=== PATIENT | male | born 1950 | race Caucasian/White ===

== ENCOUNTER → 2016-10-26 | Outpatient (CLI) | payer MEDICARE, OTHER ==
[2016-10-26 11:33] LABS: Urine RBC None Seen /hpf (0 - 3)
[2016-10-26 12:18] LABS: Basophils # (auto) 0.1 uL; Basophils % (auto) 1.1 % (0.0-2.0); Eosinophils # (auto) 0.4 uL; Eosinophils % (auto) 3.4 % (0.0-7.0); Hematocrit 40.7 % (41.0-53.0); Hemoglobin 13.6 g/dL (13.5-17.5); Lymphocytes # (auto) 3.1 uL; Lymphocytes % (auto) 26.7 % (10.0-50.0); Mean Corpuscular Hemoglobin 28.6 pg (28.0-32.0); Mean Corpuscular Hgb Conc. 33.5 g/dL (32.0-36.0); Mean Corpuscular Volume 85.3 fL (80.0-100.0); Mean Platelet Volume 7.2 fL (6.9-10.8); Monocytes # (auto) 0.8 uL; Monocytes % (auto) 6.8 % (0.0-12.0); Neutrophils # (auto) 7.3 uL; Nucleated Red Blood Cells % 0.1 %; Platelet Count (auto) 351 10^3/uL (140-450); Red Cell Distribution Width 12.7 % (11.8-14.3); White Blood Cell 11.7 10^3/uL (4.4-10.8)
[2016-10-26 12:20] LABS: Albumin 3.6 g/dL (3.4-5.0); BUN/Creatinine Ratio 24.4; Bilirubin, Total 0.5 mg/dL (0.2-1.0); Potassium 3.6 mmol/L (3.5-5.1); Total Protein 8.5 g/dL (6.4-8.2); Uric Acid 7.4 mg/dL (3.5-7.2)
[2016-10-26 13:06] LABS: Urine Bilirubin Negative (Negative); Urine Blood Negative /uL (Negative); Urine Color Yellow (Yellow); Urine Glucose Normal (Normal); Urine Ketone Negative (Negative); Urine Nitrite Negative (Negative); Urine Urobilinogen Normal (Negative); Urine pH 6.5 (5.0-8.0)
== END | disposition home or self-care (01) ==
LOC: LAB 11:27
PROVIDERS: ATTEND Family Medicine
DX: E78.5 Hyperlipidemia, unspecified (principal); I10 Essential (primary) hypertension; M10.9 Gout, unspecified; R97.20 Elevated prostate specific antigen [PSA]
CPT/HCPCS: 36415; 80053; 80061; 81001; 84153; 84550; 85025

== ENCOUNTER 2016-12-07 08:35 | Emergency (ER) | payer MEDICARE, OTHER ==
[~2016-12-07] VITALS: Ht 170.2 cm; Wt 93.0 kg
[2016-12-07 08:47] VITALS: BP 172/91
== END 2016-12-07 09:27 | disposition home or self-care (01) ==
LOC: ER 08:35
DX: G89.29 Other chronic pain (principal); M25.511 Pain in right shoulder; M19.90 Unspecified osteoarthritis, unspecified site

== ENCOUNTER → 2017-03-09 | Outpatient (CLI) | payer MEDICARE, OTHER | END | disposition home or self-care (01) | LOC: LAB 10:00 | PROVIDERS: ATTEND Family Medicine | DX: M85.0 Fibrous dysplasia (monostotic) (principal) ==

== ENCOUNTER 2017-04-09 08:20 | Emergency (ER) | payer MEDICARE, OTHER ==
[~2017-04-09] VITALS: Ht 167.6 cm; Wt 93.4 kg
[2017-04-09 11:35] VITALS: BP 152/72
== END 2017-04-09 12:05 | disposition home or self-care (01) ==
LOC: ER 08:20
DX: T78.40XA Allergy, unspecified, initial encounter (principal); Z91.040 Latex allergy status; X58.XXXA Exposure to other specified factors, initial encounter

== ENCOUNTER 2017-11-08 16:30 | Inpatient (IN) | payer MEDICARE, OTHER ==
[~2017-11-08] VITALS: Ht 170.2 cm; Wt 79.4 kg
[~2017-11-08 16:30] MED LIST: ASPI-231 PO; HYDR25TA4 PO; LISI-646 PO; SIMV-13 PO
[2017-11-08 17:43] LABS: Basophils # (auto) 0 uL; Basophils % (auto) 0.3 % (0.0-2.0); Eosinophils # (auto) 0 uL; Eosinophils % (auto) 1.1 % (0.0-7.0); Hematocrit 24.5 % (41.0-53.0); Hemoglobin 8.5 g/dL (13.5-17.5); Lymphocytes # (auto) 0.9 uL; Lymphocytes % (auto) 28.6 % (10.0-50.0); Mean Corpuscular Hemoglobin 30.6 pg (28.0-32.0); Mean Corpuscular Hgb Conc. 34.6 g/dL (32.0-36.0); Mean Corpuscular Volume 88.4 fL (80.0-100.0); Monocytes # (auto) 0.2 uL; Monocytes % (auto) 4.8 % (0.0-12.0); Neutrophils # (auto) 2.1 uL; Neutrophils % (auto) 65.2 % (37.0-80.0); Nucleated Red Blood Cells % 0.3 %; Platelet Count (auto) 228 10^3/uL (140-450); Red Blood Cells 2.77 10^6/uL (4.5-5.90); Red Cell Distribution Width 17.8 % (11.8-14.3); White Blood Cell 3.2 10^3/uL (4.4-10.8)
[2017-11-08 17:59] LABS: Alanine Aminotransferase 16 U/L (16-61); Albumin 2.7 g/dL (3.4-5.0); Anion Gap 11 (5-15); Aspartate Aminotransferase 7 U/L (15-37); BUN/Creatinine Ratio 13.2; Blood Urea Nitrogen 16 mg/dL (7-18); Calcium 7.6 mg/dL (8.5-10.1); Carbon Dioxide 23 mmol/L (21-32); Chloride 103 mmol/L (98-107); GFR African American 76 mL/min; GFR Non-African American 63 mL/min; Glucose 127 mg/dL (74-106); Sodium 137 mmol/L (136-145)
[2017-11-08 18:04] LABS: Alkaline Phosphatase 109 U/L (45-117); Total Protein 6.6 g/dL (6.4-8.2)
[2017-11-08 18:19] LABS: Potassium 2.9 mmol/L (3.5-5.1)
[2017-11-08] MEDS ORDERED: SODIUM CHLORIDE 0.9% 1,000 ML IVB ONE (18:20)
[2017-11-08] MEDS ORDERED: PROMETHAZINE HCL 25 MG/ML 1ML IV PRN ×2 (18:30→21:00)
[2017-11-08 19:03] LABS: Magnesium 1.7 mg/dL (1.6-2.6)
[2017-11-08 19:11] LABS: INR 1.08 (0.9-1.15); Partial Thromboplastin Time 25.6 sec (23.78-33.04); Prothrombin Time 11.5 sec (9.27-12.13)
[2017-11-08] MEDS ORDERED: MEPERIDINE HCL (25 MG/ML) 1ML VIAL IV ONE (19:15)
[2017-11-08] MEDS ORDERED: ONDANSETRON HCL 4 MG/2 ML VIAL IV ONE (20:45)
[2017-11-08] MEDS: POTASSIUM CHL 20MEQ/100ML 100 ML IV SCH (20:56)
[2017-11-08] MEDS ORDERED: NITROGLYCERIN 0.4 MG SL TAB SL PRN (21:00)
[2017-11-08] MEDS ORDERED: ACETAMINOPHEN 325 MG TAB PO PRN (21:00)
[2017-11-08] MEDS ORDERED: TEMAZEPAM 15 MG CAP PO PRN (21:00)
[2017-11-08] MEDS ORDERED: MORPHINE SULFATE 4 MG/ML SYR/VIAL IV PRN (21:00)
[2017-11-08] MEDS ORDERED: HYDROcodone-ACET 5/325MG TAB PO PRN (21:00)
[2017-11-08] MEDS ORDERED: PANTOPRAZOLE 40 MG/10 ML VIAL IV ONE (21:00)
[2017-11-08] MEDS ORDERED: ONDANSETRON HCL 4 MG/2 ML VIAL IV PRN (21:00)
[2017-11-08] MEDS: SODIUM CHLORIDE 0.9% 1,000 ML IV SCH ×2 (22:52→23:57)
[2017-11-08] MEDS: ATORVASTATIN 20 MG TAB PO SCH (22:52)
[2017-11-09] MEDS: POTASSIUM CHL 20MEQ/100ML 100 ML IV SCH (01:11)
[2017-11-09 04:57] LABS: Platelet Count (auto) 167 10^3/uL (140-450); Red Cell Distribution Width 17.8 % (11.8-14.3); White Blood Cell 3.2 10^3/uL (4.4-10.8)
[2017-11-09 05:00] LABS: Hematocrit 19.4 % (41.0-53.0); Mean Corpuscular Hemoglobin 31.2 pg (28.0-32.0); Mean Corpuscular Hgb Conc. 35.5 g/dL (32.0-36.0); Mean Corpuscular Volume 87.9 fL (80.0-100.0)
[2017-11-09 05:19] LABS: Calcium 7.2 mg/dL (8.5-10.1)
[2017-11-09 05:22] LABS: Albumin 2.1 g/dL (3.4-5.0); BUN/Creatinine Ratio 13.3
[2017-11-09 05:25] LABS: Bilirubin, Total 0.8 mg/dL (0.2-1.0); Total Protein 5.1 g/dL (6.4-8.2)
[2017-11-09 05:31] LABS: Potassium 2.9 mmol/L (3.5-5.1)
[2017-11-09 05:32] LABS: Hemoglobin 6.9 g/dL (13.5-17.5)
[2017-11-09 05:33] LABS: Band Neutrophils % (manual) 0; Basophils % (manual) 0 (0.0-2.0); Blast Cells 0; Metamyelocytes % 0; Myelocytes % 0; Promyelocytes % 0; Reactive Lymphocytes 0
[2017-11-09 06:01] LABS: Eosinophils % (manual) 4 (0-7); Lymphocytes % (manual) 58 (10.0-50.0); Monocytes % (manual) 7 (0-12)
[2017-11-09] MEDS: metroNIDAZOLE 500MG/100ML 100 ML IV SCH ×3 (06:19→22:26)
[2017-11-09] MEDS: cefTRIAXone 1GM/10ml IVPUSH 10 ML IV SCH (09:25)
[2017-11-09] MEDS: PANTOPRAZOLE 40 MG/10 ML VIAL IV SCH (09:25)
[2017-11-09] MEDS: LISINOPRIL 20 MG TAB PO SCH (09:25)
[2017-11-09] MEDS: HCTZ 25 MG TAB PO SCH (09:25)
[2017-11-09] MEDS: ENOXAPARIN SOD 40 MG/0.4 ML SYRINGE SC SCH (09:26)
[2017-11-09 10:15] VITALS: BP 136/54
[2017-11-09 10:30] VITALS: BP 123/51
[2017-11-09 12:17] VITALS: BP 106/55
[2017-11-09] MEDS ORDERED: POTASSIUM CHL 20 Meq TABLET PO ONE (13:45)
[2017-11-09 13:52] LABS: Hematocrit 23.4 % (41.0-53.0); Hemoglobin 8.1 g/dL (13.5-17.5)
[2017-11-09 17:00] VITALS: BP 136/58
[2017-11-09 17:42] VITALS: BP 136/58
[2017-11-09] MEDS: SODIUM CHLORIDE 0.9% 1,000 ML IV SCH (20:32)
[2017-11-09 22:00] VITALS: BP 102/38
[2017-11-09] MEDS: ATORVASTATIN 20 MG TAB PO SCH (22:26)
[2017-11-10 05:00] VITALS: BP 112/45
[2017-11-10] MEDS: metroNIDAZOLE 500MG/100ML 100 ML IV SCH ×3 (06:24→22:41)
[2017-11-10 06:49] LABS: Hematocrit 24.1 % (41.0-53.0); Hemoglobin 8.5 g/dL (13.5-17.5); Mean Corpuscular Hemoglobin 31.2 pg (28.0-32.0); Mean Corpuscular Hgb Conc. 35.1 g/dL (32.0-36.0); Mean Corpuscular Volume 89.1 fL (80.0-100.0); Platelet Count (auto) 162 10^3/uL (140-450); Red Blood Cells 2.71 10^6/uL (4.5-5.90); Red Cell Distribution Width 17.9 % (11.8-14.3)
[2017-11-10 07:03] LABS: Blast Cells 0; Myelocytes % 0; Reactive Lymphocytes 0
[2017-11-10 07:07] LABS: Calcium 7.5 mg/dL (8.5-10.1)
[2017-11-10 07:10] LABS: Albumin 2.1 g/dL (3.4-5.0); BUN/Creatinine Ratio 9.9
[2017-11-10 07:16] LABS: Bilirubin, Total 0.6 mg/dL (0.2-1.0); Total Protein 5.1 g/dL (6.4-8.2)
[2017-11-10 07:31] LABS: Potassium 2.9 mmol/L (3.5-5.1)
[2017-11-10 08:00] VITALS: BP 123/50
[2017-11-10] MEDS ORDERED: POTASSIUM CHL 20 Meq TABLET PO ONE (08:00)
[2017-11-10 08:01] LABS: Band Neutrophils % (manual) 3; Basophils % (manual) 1 (0.0-2.0); Eosinophils % (manual) 12 (0-7); Lymphocytes % (manual) 38 (10.0-50.0); Metamyelocytes % 3; Monocytes % (manual) 9 (0-12); Promyelocytes % 1
[2017-11-10] MEDS: cefTRIAXone 1GM/10ml IVPUSH 10 ML IV SCH (09:14)
[2017-11-10] MEDS: PANTOPRAZOLE 40 MG/10 ML VIAL IV SCH (09:14)
[2017-11-10] MEDS: SODIUM CHLORIDE 0.9% 1,000 ML IV SCH ×2 (09:14→20:04)
[2017-11-10] MEDS: HCTZ 25 MG TAB PO SCH (09:15)
[2017-11-10] MEDS: ENOXAPARIN SOD 40 MG/0.4 ML SYRINGE SC SCH (09:16)
[2017-11-10] MEDS: LISINOPRIL 20 MG TAB PO SCH (09:16)
[2017-11-10 09:27] VITALS: BP 123/50
[2017-11-10] MEDS ORDERED: LOPERAMIDE HCL 2 MG CAP PO ONE (11:15)
[2017-11-10 12:41] VITALS: BP 112/50
[2017-11-10] MEDS ORDERED: EPOETIN ALFA 10,000 UNIT/1 ML VIAL SC ONE (15:00)
[2017-11-10 15:08] LABS: Folate (Folic Acid) 12.97 ng/mL (5.38-24)
[2017-11-10 17:05] VITALS: BP 136/61
[2017-11-10] MEDS: Pro-Stat SF 30ml Vanilla PO SCH (18:55)
[2017-11-10] MEDS: ENSURE CLEAR Apple 8oz Carton PO SCH (18:55)
[2017-11-10 20:00] VITALS: BP 122/84
[2017-11-10] MEDS: ATORVASTATIN 20 MG TAB PO SCH (22:41)
[2017-11-11 05:08] VITALS: BP 121/60
[2017-11-11] MEDS: metroNIDAZOLE 500MG/100ML 100 ML IV SCH ×3 (05:42→21:25)
[2017-11-11 05:51] LABS: Mean Corpuscular Hemoglobin 31.7 pg (28.0-32.0)
[2017-11-11 05:54] LABS: Hematocrit 23.4 % (41.0-53.0); Hemoglobin 8.3 g/dL (13.5-17.5); Mean Corpuscular Hgb Conc. 35.5 g/dL (32.0-36.0); Mean Corpuscular Volume 89.1 fL (80.0-100.0); Platelet Count (auto) 172 10^3/uL (140-450); Red Blood Cells 2.63 10^6/uL (4.5-5.90); Red Cell Distribution Width 18.9 % (11.8-14.3); White Blood Cell 5.3 10^3/uL (4.4-10.8)
[2017-11-11 06:00] LABS: Basophils % (manual) 0 (0.0-2.0); Blast Cells 0; Metamyelocytes % 0; Promyelocytes % 0; Reactive Lymphocytes 0
[2017-11-11 06:04] LABS: Albumin 2.2 g/dL (3.4-5.0); BUN/Creatinine Ratio 7.1; Calcium 7.3 mg/dL (8.5-10.1)
[2017-11-11 06:07] LABS: Bilirubin, Total 0.4 mg/dL (0.2-1.0)
[2017-11-11 06:18] LABS: Potassium 2.7 mmol/L (3.5-5.1)
[2017-11-11 06:58] LABS: Band Neutrophils % (manual) 0; Eosinophils % (manual) 3 (0-7); Lymphocytes % (manual) 51 (10.0-50.0); Monocytes % (manual) 8 (0-12); Myelocytes % 5
[2017-11-11] MEDS ORDERED: POTASSIUM CHL 20 Meq TABLET PO ONE (07:15)
[2017-11-11] MEDS: Pro-Stat SF 30ml Vanilla PO SCH ×2 (08:00→18:00)
[2017-11-11] MEDS: cefTRIAXone 1GM/10ml IVPUSH 10 ML IV SCH (09:14)
[2017-11-11] MEDS: PANTOPRAZOLE 40 MG/10 ML VIAL IV SCH (09:14)
[2017-11-11] MEDS: ENSURE CLEAR Apple 8oz Carton PO SCH ×3 (09:15→18:14)
[2017-11-11] MEDS: SODIUM CHLORIDE 0.9% 1,000 ML IV SCH ×2 (09:15→21:20)
[2017-11-11] MEDS: ENOXAPARIN SOD 40 MG/0.4 ML SYRINGE SC SCH (09:16)
[2017-11-11] MEDS: HCTZ 25 MG TAB PO SCH (10:00)
[2017-11-11] MEDS ORDERED: FILGRASTIM(TBO) 480 MCG/0.8 ML SYRG SC SCH (10:00)
[2017-11-11] MEDS: LISINOPRIL 20 MG TAB PO SCH (10:19)
[2017-11-11 10:39] VITALS: BP 140/67
[2017-11-11 13:00] VITALS: BP 146/58
[2017-11-11] MEDS: LOPERAMIDE HCL 2 MG CAP PO PRN (14:52)
[2017-11-11 16:57] VITALS: BP 131/56
[2017-11-11 20:00] VITALS: BP 122/65
[2017-11-11] MEDS: ATORVASTATIN 20 MG TAB PO SCH (21:24)
[2017-11-11] MEDS: POTASSIUM EFFERVESENT TAB 25 MEQ PO SCH (21:25)
[2017-11-11 22:02] VITALS: BP 122/65
[2017-11-12 05:09] VITALS: BP 113/52
[2017-11-12] MEDS: metroNIDAZOLE 500MG/100ML 100 ML IV SCH ×3 (05:30→21:06)
[2017-11-12] MEDS: LOPERAMIDE HCL 2 MG CAP PO PRN (05:46)
[2017-11-12 06:18] LABS: Basophils # (auto) 0.1 uL; Basophils % (auto) 0.2 % (0.0-2.0); Eosinophils # (auto) 0.7 uL; Lymphocytes # (auto) 2.8 uL; Neutrophils # (auto) 21.9 uL
[2017-11-12 06:23] LABS: Eosinophils % (auto) 2.4 % (0.0-7.0); Hematocrit 24.8 % (41.0-53.0); Hemoglobin 8.3 g/dL (13.5-17.5); Mean Corpuscular Hemoglobin 30.6 pg (28.0-32.0); Mean Corpuscular Hgb Conc. 33.4 g/dL (32.0-36.0); Mean Corpuscular Volume 91.7 fL (80.0-100.0); Monocytes # (auto) 2.8 uL; Monocytes % (auto) 9.8 % (0.0-12.0); Neutrophils % (auto) 77.6 % (37.0-80.0); Nucleated Red Blood Cells % 0.3 %; Platelet Count (auto) 188 10^3/uL (140-450); Red Blood Cells 2.71 10^6/uL (4.5-5.90); White Blood Cell 28.3 10^3/uL (4.4-10.8)
[2017-11-12 06:35] LABS: BUN/Creatinine Ratio 4.6; Potassium 3.3 mmol/L (3.5-5.1); Red Cell Distribution Width 20.3 % (11.8-14.3)
[2017-11-12 06:36] LABS: Albumin 2.1 g/dL (3.4-5.0); Calcium 7.3 mg/dL (8.5-10.1)
[2017-11-12 06:38] LABS: Bilirubin, Total 0.6 mg/dL (0.2-1.0); Total Protein 4.9 g/dL (6.4-8.2)
[2017-11-12] MEDS: SODIUM CHLORIDE 0.9% 1,000 ML IV SCH ×2 (07:02→18:29)
[2017-11-12] MEDS: Pro-Stat SF 30ml Vanilla PO SCH ×2 (08:00→18:00)
[2017-11-12] MEDS: ENSURE CLEAR Apple 8oz Carton PO SCH ×2 (08:45→12:26)
[2017-11-12 09:00] VITALS: BP 130/77
[2017-11-12] MEDS: cefTRIAXone 1GM/10ml IVPUSH 10 ML IV SCH (09:13)
[2017-11-12] MEDS: PANTOPRAZOLE 40 MG/10 ML VIAL IV SCH (09:13)
[2017-11-12] MEDS: HCTZ 25 MG TAB PO SCH (09:14)
[2017-11-12] MEDS: POTASSIUM EFFERVESENT TAB 25 MEQ PO SCH (09:14)
[2017-11-12] MEDS: LISINOPRIL 20 MG TAB PO SCH (09:14)
[2017-11-12] MEDS: ENOXAPARIN SOD 40 MG/0.4 ML SYRINGE SC SCH (09:15)
[2017-11-12] MEDS ORDERED: LOPERAMIDE HCL 2 MG CAP PO SCH (12:00)
[2017-11-12 13:14] VITALS: BP 127/59
[2017-11-12] MEDS ORDERED: LOPERAMIDE HCL 2 MG CAP PO PRN (15:00)
[2017-11-12 16:54] VITALS: BP 136/68
[2017-11-12] MEDS: Ensure Enlive Strawberry 8oz Bottle PO SCH (18:10)
[2017-11-12 20:00] VITALS: BP 134/74
[2017-11-12] MEDS: ATORVASTATIN 20 MG TAB PO SCH (21:06)
[2017-11-12 21:58] VITALS: BP 134/74
[2017-11-13] MEDS: SODIUM CHLORIDE 0.9% 1,000 ML IV SCH ×2 (02:05→10:15)
[2017-11-13 05:00] VITALS: BP 120/61
[2017-11-13] MEDS: metroNIDAZOLE 500MG/100ML 100 ML IV SCH (05:44)
[2017-11-13] MEDS: Pro-Stat SF 30ml Vanilla PO SCH (08:04)
[2017-11-13] MEDS: Ensure Enlive Strawberry 8oz Bottle PO SCH ×2 (08:04→12:10)
[2017-11-13 08:37] VITALS: BP 124/52
[2017-11-13] MEDS: PANTOPRAZOLE 40 MG/10 ML VIAL IV SCH (09:19)
[2017-11-13] MEDS: cefTRIAXone 1GM/10ml IVPUSH 10 ML IV SCH (09:19)
[2017-11-13] MEDS: POTASSIUM EFFERVESENT TAB 25 MEQ PO SCH (09:20)
[2017-11-13] MEDS: HCTZ 25 MG TAB PO SCH (09:20)
[2017-11-13] MEDS: ENOXAPARIN SOD 40 MG/0.4 ML SYRINGE SC SCH (09:21)
[2017-11-13] MEDS: LISINOPRIL 20 MG TAB PO SCH (09:21)
[2017-11-13 13:00] VITALS: BP 128/58
[2017-11-14 19:48] LABS: % Iron Saturation 13.2 % (20-55)
== END 2017-11-13 15:39 | disposition home or self-care (01) | DRG 391 ==
LOC: EDBD 16:30 → ER 16:30 → OVERFLOW 16:31 → EAST 11-09 15:50
PROVIDERS: ADMIT Nurse Practitioner; ATTEND Family Medicine
PROC: 30233N1 Transfusion of Nonautologous Red Blood Cells into Peripheral Vein, Percutaneous Approach (ICD-10-PCS; principal; 2017-11-09)
DX: K52.9 Noninfective gastroenteritis and colitis, unspecified (principal); E43 Unspecified severe protein-calorie malnutrition; K57.92 Diverticulitis of intestine, part unspecified, without perforation or abscess without bleeding; C25.9 Malignant neoplasm of pancreas, unspecified; E87.6 Hypokalemia; D64.9 Anemia, unspecified; D70.9 Neutropenia, unspecified; K40.20 Bilateral inguinal hernia, without obstruction or gangrene, not specified as recurrent; E78.00 Pure hypercholesterolemia, unspecified; I10 Essential (primary) hypertension; Z82.49 Family history of ischemic heart disease and other diseases of the circulatory system; Z90.411 Acquired partial absence of pancreas; Z68.27 Body mass index [BMI] 27.0-27.9, adult; Z79.82 Long term (current) use of aspirin; Z79.899 Other long term (current) drug therapy
CPT/HCPCS: 36415; 36430; 71045; 74176; 80053; 82150; 82607; 82746; 83540; 83550; 83690; 83735; 84484; 85007; 85014; 85018; 85025; 85027; 85610; 85730; 86850; 86900; 86901; 86920; 87040; 87045; 87493; 87899; 93005; 96361; 96374; 96375; C9113; J0696; J0885; J1447; J2405; J3480; J3490

== ENCOUNTER → 2018-01-15 | Outpatient (CLI) | payer MEDICARE, OTHER ==
[2018-01-15 10:30] LABS: Basophils # (auto) 0.1 uL; Eosinophils # (auto) 0.6 uL; Eosinophils % (auto) 6.9 % (0.0-7.0); Hematocrit 32.9 % (41.0-53.0); Lymphocytes # (auto) 2.5 uL; Lymphocytes % (auto) 30.4 % (10.0-50.0); Mean Corpuscular Hemoglobin 33.3 pg (28.0-32.0); Mean Corpuscular Hgb Conc. 33.3 g/dL (32.0-36.0); Mean Corpuscular Volume 100.1 fL (80.0-100.0); Monocytes % (auto) 12.2 % (0.0-12.0); Neutrophils # (auto) 4.1 uL; Neutrophils % (auto) 49.5 % (37.0-80.0); Platelet Count (auto) 214 10^3/uL (140-450); Red Blood Cells 3.29 10^6/uL (4.5-5.90); White Blood Cell 8.3 10^3/uL (4.4-10.8)
[2018-01-15 10:40] LABS: Red Cell Distribution Width 22.8 % (11.8-14.3)
[2018-01-15 11:41] LABS: Potassium 3.6 mmol/L (3.5-5.1)
[2018-01-15 11:54] LABS: Albumin 3.5 g/dL (3.4-5.0); BUN/Creatinine Ratio 18.7; Bilirubin, Total 0.6 mg/dL (0.2-1.0)
== END | disposition home or self-care (01) ==
LOC: LAB 10:04
PROVIDERS: ATTEND Internal Medicine
DX: Z12.11 Encounter for screening for malignant neoplasm of colon (principal); I10 Essential (primary) hypertension; E78.2 Mixed hyperlipidemia
CPT/HCPCS: 36415; 80053; 80061; 84153; 85025

== ENCOUNTER → 2018-01-23 | Outpatient (CLI) | payer MEDICARE, OTHER | END | disposition home or self-care (01) | LOC: LAB 15:32 | PROVIDERS: ATTEND Internal Medicine | DX: Z12.11 Encounter for screening for malignant neoplasm of colon (principal); I10 Essential (primary) hypertension; E78.2 Mixed hyperlipidemia | CPT/HCPCS: 82270 ==

== ENCOUNTER → 2018-02-23 | Outpatient (CLI) | payer MEDICARE, OTHER ==
[2018-02-23 12:08] LABS: Basophils # (auto) 0.1 uL; Eosinophils # (auto) 0.3 uL; Eosinophils % (auto) 3.9 % (0.0-7.0); Hematocrit 36.8 % (41.0-53.0); Hemoglobin 12.4 g/dL (13.5-17.5); Lymphocytes # (auto) 2.2 uL; Lymphocytes % (auto) 31.5 % (10.0-50.0); Mean Corpuscular Hemoglobin 33.4 pg (28.0-32.0); Mean Corpuscular Hgb Conc. 33.8 g/dL (32.0-36.0); Monocytes # (auto) 1.3 uL; Monocytes % (auto) 17.7 % (0.0-12.0); Neutrophils # (auto) 3.2 uL; Neutrophils % (auto) 44.9 % (37.0-80.0); Nucleated Red Blood Cells % 0.1 %; Platelet Count (auto) 348 10^3/uL (140-450); Red Blood Cells 3.72 10^6/uL (4.5-5.90); Red Cell Distribution Width 20.5 % (11.8-14.3); White Blood Cell 7.1 10^3/uL (4.4-10.8)
[2018-02-23 13:18] LABS: Albumin 3.6 g/dL (3.4-5.0); Anion Gap 3 (5-15); Blood Urea Nitrogen 17 mg/dL (7-18); Calcium 8.5 mg/dL (8.5-10.1); Carbon Dioxide 31 mmol/L (21-32); Chloride 106 mmol/L (98-107); Sodium 140 mmol/L (136-145)
[2018-02-23 13:24] LABS: Alanine Aminotransferase 24 U/L (16-61); Alkaline Phosphatase 88 U/L (45-117); Aspartate Aminotransferase 17 U/L (15-37); BUN/Creatinine Ratio 15.3; Bilirubin, Total 0.8 mg/dL (0.2-1.0); GFR African American > 60 mL/min; GFR Non-African American > 60 mL/min; Glucose 90 mg/dL (74-106); Lactate Dehydrogenase 217 U/L (87-241)
== END | disposition home or self-care (01) ==
LOC: LAB 11:15
PROVIDERS: ATTEND Internal Medicine
DX: C25.9 Malignant neoplasm of pancreas, unspecified (principal)
CPT/HCPCS: 36415; 80053; 83615; 85025

== ENCOUNTER → 2018-03-09 | Outpatient (CLI) | payer OTHER | END | disposition home or self-care (01) | LOC: LAB 14:28 | PROVIDERS: ATTEND Internal Medicine | DX: C25.9 Malignant neoplasm of pancreas, unspecified (principal); E78.5 Hyperlipidemia, unspecified | CPT/HCPCS: 36415; 83036 ==

== ENCOUNTER → 2018-06-07 | Outpatient (CLI) | payer MEDICARE, OTHER ==
[2018-06-08 09:59] LABS: Basophils # (auto) 0.1 uL; Basophils % (auto) 1.4 % (0.0-2.0); Eosinophils # (auto) 0.4 uL; Eosinophils % (auto) 5.3 % (0.0-7.0); Hematocrit 42.6 % (41.0-53.0); Hemoglobin 14.6 g/dL (13.5-17.5); Lymphocytes # (auto) 2.5 uL; Lymphocytes % (auto) 32.5 % (10.0-50.0); Mean Corpuscular Hemoglobin 29.8 pg (28.0-32.0); Mean Corpuscular Hgb Conc. 34.4 g/dL (32.0-36.0); Mean Corpuscular Volume 86.8 fL (80.0-100.0); Monocytes # (auto) 0.6 uL; Monocytes % (auto) 8.1 % (0.0-12.0); Neutrophils % (auto) 52.7 % (37.0-80.0); Platelet Count (auto) 253 10^3/uL (140-450); Red Blood Cells 4.91 10^6/uL (4.5-5.90); Red Cell Distribution Width 13.3 % (11.8-14.3); White Blood Cell 7.7 10^3/uL (4.4-10.8)
[2018-06-08 10:17] LABS: Potassium 3.6 mmol/L (3.5-5.1)
[2018-06-08 10:30] LABS: Albumin 3.6 g/dL (3.4-5.0); Bilirubin, Total 0.4 mg/dL (0.2-1.0); Calcium 8.7 mg/dL (8.5-10.1); Total Protein 7.5 g/dL (6.4-8.2)
== END | disposition home or self-care (01) ==
LOC: LAB 13:45
PROVIDERS: ATTEND Internal Medicine
DX: C25.9 Malignant neoplasm of pancreas, unspecified (principal); E78.5 Hyperlipidemia, unspecified
CPT/HCPCS: 36415; 80053; 80061; 85025

== ENCOUNTER → 2018-09-21 | Outpatient (CLI) | payer MEDICARE, OTHER | END | disposition home or self-care (01) | LOC: LAB 08:51 | PROVIDERS: ATTEND Internal Medicine | DX: E78.5 Hyperlipidemia, unspecified (principal); D64.9 Anemia, unspecified; I10 Essential (primary) hypertension; E78.00 Pure hypercholesterolemia, unspecified; Z79.899 Other long term (current) drug therapy | CPT/HCPCS: 36415; 83036 ==

== ENCOUNTER → 2018-10-18 | Outpatient (CLI) | payer MEDICARE, OTHER | END | disposition home or self-care (01) | LOC: LAB 12:15 | PROVIDERS: ATTEND Internal Medicine | DX: M79.605 Pain in left leg (principal); M79.89 Other specified soft tissue disorders | CPT/HCPCS: 36415; 84550 ==

== ENCOUNTER → 2019-01-18 | Outpatient (CLI) | payer MEDICARE, OTHER ==
[2019-01-18 09:56] LABS: Folate (Folic Acid) 5.59 ng/mL (5.38-24)
== END | disposition home or self-care (01) ==
LOC: LAB 08:44
PROVIDERS: ATTEND Internal Medicine
DX: D64.9 Anemia, unspecified (principal); E78.5 Hyperlipidemia, unspecified; I10 Essential (primary) hypertension; N28.1 Cyst of kidney, acquired; C25.9 Malignant neoplasm of pancreas, unspecified; K25.9 Gastric ulcer, unspecified as acute or chronic, without hemorrhage or perforation; Z79.899 Other long term (current) drug therapy
CPT/HCPCS: 36415; 82306; 82607; 82746; 84550

== ENCOUNTER → 2019-04-19 | Outpatient (CLI) | payer MEDICARE, OTHER ==
[2019-04-19 14:31] LABS: Albumin 3.8 g/dL (3.4-5.0); Calcium 9.1 mg/dL (8.5-10.1); Potassium 3.7 mmol/L (3.5-5.1)
[2019-04-19 14:34] LABS: BUN/Creatinine Ratio 14.7; Bilirubin, Total 0.5 mg/dL (0.2-1.0); Total Protein 7.7 g/dL (6.4-8.2)
== END | disposition home or self-care (01) ==
LOC: LAB 13:53
PROVIDERS: ATTEND Internal Medicine
DX: N28.1 Cyst of kidney, acquired (principal); E79.0 Hyperuricemia without signs of inflammatory arthritis and tophaceous disease; D64.9 Anemia, unspecified; E78.5 Hyperlipidemia, unspecified; Z12.11 Encounter for screening for malignant neoplasm of colon
CPT/HCPCS: 36415; 80053; 82043; 83036

== ENCOUNTER → 2019-04-25 | Outpatient (CLI) | payer MEDICARE, OTHER | END | disposition home or self-care (01) | LOC: LAB 15:55 | PROVIDERS: ATTEND Internal Medicine | DX: Z12.11 Encounter for screening for malignant neoplasm of colon (principal); E78.5 Hyperlipidemia, unspecified; D64.9 Anemia, unspecified | CPT/HCPCS: 82270 ==

== ENCOUNTER → 2019-05-03 | Outpatient (CLI) | payer MEDICARE, OTHER | END | disposition home or self-care (01) | LOC: LAB 10:28 | PROVIDERS: ATTEND Internal Medicine | DX: E78.5 Hyperlipidemia, unspecified (principal); R73.03 Prediabetes | CPT/HCPCS: 36415; 84443 ==

== ENCOUNTER → 2019-09-02 | Outpatient (CLI) | payer MEDICARE, OTHER | END | disposition home or self-care (01) | LOC: LAB 08:42 | PROVIDERS: ATTEND Internal Medicine | DX: E03.9 Hypothyroidism, unspecified (principal) | CPT/HCPCS: 36415; 84403; 84443 ==

== ENCOUNTER → 2019-12-02 | Outpatient (CLI) | payer MEDICARE, OTHER | END | disposition home or self-care (01) | LOC: LAB 10:18 | PROVIDERS: ATTEND Internal Medicine | DX: E03.9 Hypothyroidism, unspecified (principal) | CPT/HCPCS: 36415; 84443; 84550 ==

== ENCOUNTER → 2020-06-02 | Outpatient (CLI) | payer MEDICARE, OTHER ==
[~2020-06-02] MED LIST changes: -LISI-646 PO; +LISI20TA28 PO
[2020-06-02 10:21] LABS: Basophils # (auto) 0.1 10 ^3/uL (0-0.2); Basophils % (auto) 1.1 % (0.0-2.0); Eosinophils # (auto) 0.4 10 ^3/uL (0-0.8); Eosinophils % (auto) 4.7 % (0.0-7.0); Hematocrit 43.4 % (41.0-53.0); Hemoglobin 14.8 g/dL (13.5-17.5); Lymphocytes # (auto) 2.6 10 ^3/uL (0.4-5.4); Lymphocytes % (auto) 27.2 % (10.0-50.0); Mean Corpuscular Hemoglobin 29.6 pg (28.0-32.0); Mean Corpuscular Hgb Conc. 34.2 g/dL (32.0-36.0); Mean Corpuscular Volume 86.7 fL (80.0-100.0); Monocytes # (auto) 0.7 10 ^3/uL (0-1.3); Monocytes % (auto) 7.6 % (0.0-12.0); Neutrophils # (auto) 5.6 10 ^3/uL (1.6-8.6); Neutrophils % (auto) 59.4 % (37.0-80.0); Nucleated Red Blood Cells % 0.1 %; Platelet Count (auto) 236 10^3/uL (140-450); Red Blood Cells 5.01 10^6/uL (4.5-5.90); Red Cell Distribution Width 14.2 % (11.8-14.3); White Blood Cell 9.4 10^3/uL (4.4-10.8)
[2020-06-02 11:21] LABS: Cholesterol 147 mg/dL (< 200); HDL Cholesterol 52 mg/dL (40-59); LDL Cholesterol 85 mg/dL (< 100); Triglycerides 110 mg/dL (< 150)
== END | disposition home or self-care (01) ==
LOC: LAB 09:57
PROVIDERS: ATTEND Internal Medicine
DX: Z12.5 Encounter for screening for malignant neoplasm of prostate (principal); Z12.11 Encounter for screening for malignant neoplasm of colon; E79.0 Hyperuricemia without signs of inflammatory arthritis and tophaceous disease; E78.5 Hyperlipidemia, unspecified; E03.9 Hypothyroidism, unspecified
CPT/HCPCS: 36415; 80061; 83036; 84153; 85025

== ENCOUNTER → 2020-06-10 | Outpatient (CLI) | payer MEDICARE, OTHER | END | disposition home or self-care (01) | LOC: LAB 10:20 | PROVIDERS: ATTEND Internal Medicine | DX: Z12.11 Encounter for screening for malignant neoplasm of colon (principal); E79.0 Hyperuricemia without signs of inflammatory arthritis and tophaceous disease; E78.5 Hyperlipidemia, unspecified; E03.9 Hypothyroidism, unspecified | CPT/HCPCS: 82270 ==

== ENCOUNTER 2020-08-26 12:51 | Day surgery (SDC) | payer MEDICARE, OTHER ==
[2020-08-21 12:38] LABS: Basophils # (auto) 0.1 10 ^3/uL (0-0.2); Basophils % (auto) 1.1 % (0.0-2.0); Eosinophils # (auto) 0.4 10 ^3/uL (0-0.8); Eosinophils % (auto) 4.2 % (0.0-7.0); Hematocrit 41.6 % (41.0-53.0); Lymphocytes # (auto) 2.1 10 ^3/uL (0.4-5.4); Lymphocytes % (auto) 23.4 % (10.0-50.0); Mean Corpuscular Hemoglobin 28.9 pg (28.0-32.0); Mean Corpuscular Hgb Conc. 33.6 g/dL (32.0-36.0); Monocytes # (auto) 0.7 10 ^3/uL (0-1.3); Monocytes % (auto) 7.5 % (0.0-12.0); Neutrophils # (auto) 5.6 10 ^3/uL (1.6-8.6); Neutrophils % (auto) 63.8 % (37.0-80.0); Nucleated Red Blood Cells % 0.1 %; Red Blood Cells 4.83 10^6/uL (4.5-5.90); Red Cell Distribution Width 13.8 % (11.8-14.3); White Blood Cell 8.8 10^3/uL (4.4-10.8)
[2020-08-21 12:44] LABS: Urine Bacteria NONE SEEN /hpf (None Seen); Urine Blood Negative /uL (Negative); Urine WBC 1 /hpf (0 - 3)
[2020-08-21 13:09] LABS: Albumin 3.6 g/dL (3.4-5.0); Calcium 8.4 mg/dL (8.5-10.1); Potassium 4.1 mmol/L (3.5-5.1)
[2020-08-21 13:13] LABS: BUN/Creatinine Ratio 15.2; Bilirubin, Total 0.6 mg/dL (0.2-1.0); Total Protein 7.7 g/dL (6.4-8.2)
[~2020-08-26] VITALS: Ht 167.6 cm; Wt 87.1 kg
[~2020-08-26 12:51] MED LIST changes: +ALLO300T2 PO; +LEVO25TA6 PO; +OMEP-434 PO; +TURM1TAB PO
[2020-08-26] MEDS ORDERED: LIDOCAINE VISCOUS 2% 15ML UD ONE (13:01)
[2020-08-26] MEDS: diphenhdrAMINE HCL 50 MG/1 ML VL ONE ×2 (14:46→15:01)
[2020-08-26] MEDS: MIDAZOLAM HCL 5 MG/ML-1ML VIAL ONE ×3 (14:46→15:01)
[2020-08-26] MEDS: fentaNYL CITRATE 100 MCG/2 ML VL ONE ×3 (14:46→15:07)
[2020-08-26 15:55] VITALS: BP 143/70
== END 2020-08-26 16:10 | disposition home or self-care (01) ==
LOC: GI 12:51
PROVIDERS: ATTEND Internal Medicine Gastroenterology
DX: Z12.11 Encounter for screening for malignant neoplasm of colon (principal); K57.30 Diverticulosis of large intestine without perforation or abscess without bleeding; K44.9 Diaphragmatic hernia without obstruction or gangrene; K31.89 Other diseases of stomach and duodenum; K21.9 Gastro-esophageal reflux disease without esophagitis; K29.70 Gastritis, unspecified, without bleeding; K64.8 Other hemorrhoids; K63.89 Other specified diseases of intestine; Z98.52 Vasectomy status; Z88.5 Allergy status to narcotic agent; Z79.82 Long term (current) use of aspirin; Z79.899 Other long term (current) drug therapy; Z85.07 Personal history of malignant neoplasm of pancreas; Z68.31 Body mass index [BMI] 31.0-31.9, adult; Z20.822 Contact with and (suspected) exposure to COVID-19
CPT/HCPCS: 36415; 43239; 80053; 81001; 85025; G0121; J1200; J2250; J3010; J7030; U0003; 99153; G0500

== ENCOUNTER → 2020-09-17 | Outpatient (CLI) | payer MEDICARE, OTHER | END | disposition home or self-care (01) | LOC: LAB 15:13 | PROVIDERS: ATTEND Internal Medicine | DX: K21.9 Gastro-esophageal reflux disease without esophagitis (principal); R73.03 Prediabetes; E03.9 Hypothyroidism, unspecified | CPT/HCPCS: 36415; 82043; 84443; 86677 ==

== ENCOUNTER 2021-03-06 17:54 | Emergency (ER) | payer MEDICARE, OTHER ==
[~2021-03-06] VITALS: Ht 167.6 cm; Wt 83.9 kg
[~2021-03-06 17:54] MED LIST changes: -ASPI-231 PO; +ASPI1TAB20 PO
[2021-03-06 19:43] LABS: Basophils # (auto) 0 10 ^3/uL (0-0.2); Basophils % (auto) 0.3 % (0.0-2.0); Eosinophils # (auto) 0.1 10 ^3/uL (0-0.8); Eosinophils % (auto) 1.4 % (0.0-7.0); Hematocrit 35.3 % (41.0-53.0); Hemoglobin 12.2 g/dL (13.5-17.5); Lymphocytes % (auto) 13.9 % (10.0-50.0); Mean Corpuscular Hemoglobin 27.9 pg (28.0-32.0); Mean Corpuscular Hgb Conc. 34.5 g/dL (32.0-36.0); Mean Corpuscular Volume 80.8 fL (80.0-100.0); Monocytes # (auto) 0.9 10 ^3/uL (0-1.3); Neutrophils % (auto) 71.4 % (37.0-80.0); Nucleated Red Blood Cells % 0.1 %; Red Blood Cells 4.37 10^6/uL (4.5-5.90); Red Cell Distribution Width 13.6 % (11.8-14.3); White Blood Cell 6.9 10^3/uL (4.4-10.8)
[2021-03-06 19:57] LABS: Albumin 3.1 g/dL (3.4-5.0); Calcium 7.8 mg/dL (8.5-10.1); Magnesium 2.5 mg/dL (1.6-2.6)
[2021-03-06 20:00] LABS: BUN/Creatinine Ratio 13.3; Bilirubin, Total 0.4 mg/dL (0.2-1.0); Total Protein 6.6 g/dL (6.4-8.2)
[2021-03-06] MEDS ORDERED: ONDANSETRON HCL 4 MG/2 ML VIAL IV ONE (20:30)
[2021-03-06] MEDS ORDERED: HYDROmorphone HCL 2 MG/ML VL IV ONE (20:30)
[2021-03-06 20:34] LABS: Potassium 2.9 mmol/L (3.5-5.1)
[2021-03-06] MEDS: POTASSIUM CHL 10MEQ/50ML 50 ML IV SCH ×2 (21:04→23:56)
[2021-03-06] MEDS: MAGNESIUM SULFATE 1GM/100ML 100 ML IV SCH ×2 (22:01→23:08)
[2021-03-06] MEDS ORDERED: ONDA-144 PO (23:20)
[2021-03-07] MEDS ORDERED: HYDROmorphone HCL 2 MG/ML VL IV ONE (00:15)
[2021-03-07 01:02] VITALS: BP 92/48
== END 2021-03-07 01:15 | disposition home or self-care (01) ==
LOC: ER 17:56
DX: E87.6 Hypokalemia (principal); C78.89 Secondary malignant neoplasm of other digestive organs; C79.89 Secondary malignant neoplasm of other specified sites; E78.5 Hyperlipidemia, unspecified; I10 Essential (primary) hypertension; Z88.6 Allergy status to analgesic agent
CPT/HCPCS: 36415; 74176; 80053; 83735; 84484; 85025; 93005; 96365; 96366; 96368; 96375; 96376; 99285; J1170; J2405; J3475; J3480

== ENCOUNTER 2021-03-15 18:31 | Emergency (ER) | payer MEDICARE, OTHER ==
[~2021-03-15] VITALS: Ht 165.1 cm; Wt 77.1 kg
[~2021-03-15 18:31] MED LIST changes: +ONDA-144 PO
[2021-03-15 20:39] LABS: Albumin 3.1 g/dL (3.4-5.0); Calcium 8.8 mg/dL (8.5-10.1); Potassium 3.4 mmol/L (3.5-5.1)
[2021-03-15 20:42] LABS: BUN/Creatinine Ratio 17.6; Bilirubin, Total 0.4 mg/dL (0.2-1.0); Total Protein 7.6 g/dL (6.4-8.2)
[2021-03-15 23:25] LABS: Basophils # (auto) 0 10 ^3/uL (0-0.2); Basophils % (auto) 0.8 % (0.0-2.0); Eosinophils # (auto) 0.1 10 ^3/uL (0-0.8); Eosinophils % (auto) 2.9 % (0.0-7.0); Hematocrit 37.2 % (41.0-53.0); Hemoglobin 12.7 g/dL (13.5-17.5); Lymphocytes # (auto) 1.2 10 ^3/uL (0.4-5.4); Lymphocytes % (auto) 43.9 % (10.0-50.0); Mean Corpuscular Hemoglobin 27.5 pg (28.0-32.0); Mean Corpuscular Hgb Conc. 34.2 g/dL (32.0-36.0); Mean Corpuscular Volume 80.6 fL (80.0-100.0); Monocytes # (auto) 0.1 10 ^3/uL (0-1.3); Monocytes % (auto) 2.2 % (0.0-12.0); Neutrophils # (auto) 1.4 10 ^3/uL (1.6-8.6); Neutrophils % (auto) 50.2 % (37.0-80.0); Nucleated Red Blood Cells % 0.2 %; Red Blood Cells 4.61 10^6/uL (4.5-5.90); Red Cell Distribution Width 13.4 % (11.8-14.3); White Blood Cell 2.8 10^3/uL (4.4-10.8)
[2021-03-16 03:08] LABS: Urine Bacteria NONE SEEN /hpf (None Seen); Urine Blood Negative /uL (Negative); Urine Mucus FEW (None Seen); Urine Specific Gravity 1.024 (1.001-1.035); Urine WBC 1 /hpf (0 - 3)
[2021-03-16] MEDS ORDERED: POTASSIUM EFFERVESENT TAB 25 MEQ PO ONE (08:15)
[2021-03-16] MEDS ORDERED: SODIUM CHLORIDE 0.9% 1,000 ML IV ONE (08:15)
[2021-03-16 10:59] VITALS: BP 138/64
== END 2021-03-16 11:55 | disposition home or self-care (01) ==
LOC: ER 18:32
DX: R19.7 Diarrhea, unspecified (principal); R11.2 Nausea with vomiting, unspecified; R10.84 Generalized abdominal pain; I10 Essential (primary) hypertension; E78.5 Hyperlipidemia, unspecified; Z79.82 Long term (current) use of aspirin; Z79.899 Other long term (current) drug therapy; Z88.5 Allergy status to narcotic agent
CPT/HCPCS: 36415; 71045; 80053; 81001; 84484; 85025; 93005; 96360; 99285; J7030

== ENCOUNTER → 2021-06-21 | Outpatient (CLI) | payer MEDICARE, OTHER | END | disposition home or self-care (01) | LOC: LAB 12:55 | PROVIDERS: ATTEND Internal Medicine | DX: E03.9 Hypothyroidism, unspecified (principal) | CPT/HCPCS: 36415; 84443 ==

== ENCOUNTER → 2021-09-24 | Outpatient (CLI) | payer MEDICARE, OTHER ==
[2021-09-24 08:35] LABS: Cholesterol 184 mg/dL (< 200); HDL Cholesterol 84 mg/dL (40-59); LDL Cholesterol 99 mg/dL (< 100); Triglycerides 139 mg/dL (< 150)
== END | disposition home or self-care (01) ==
LOC: LAB 07:52
PROVIDERS: ATTEND Internal Medicine
DX: C25.9 Malignant neoplasm of pancreas, unspecified (principal); E03.9 Hypothyroidism, unspecified; R00.1 Bradycardia, unspecified; R73.03 Prediabetes; N40.0 Benign prostatic hyperplasia without lower urinary tract symptoms; Z85.07 Personal history of malignant neoplasm of pancreas
CPT/HCPCS: 36415; 80061; 83036; 84153

== ENCOUNTER → 2022-01-28 | Outpatient (CLI) | payer MEDICARE, OTHER ==
[2022-01-28 11:03] LABS: Basophils # (auto) 0.1 10 ^3/uL (0-0.2); Basophils % (auto) 1.1 % (0.0-2.0); Eosinophils # (auto) 0.2 10 ^3/uL (0-0.8); Eosinophils % (auto) 4.3 % (0.0-7.0); Hematocrit 33.8 % (41.0-53.0); Hemoglobin 11.5 g/dL (13.5-17.5); Lymphocytes # (auto) 1.8 10 ^3/uL (0.4-5.4); Lymphocytes % (auto) 31.9 % (10.0-50.0); Mean Corpuscular Hemoglobin 29.3 pg (28.0-32.0); Mean Corpuscular Hgb Conc. 33.9 g/dL (32.0-36.0); Mean Corpuscular Volume 86.4 fL (80.0-100.0); Monocytes # (auto) 0.7 10 ^3/uL (0-1.3); Monocytes % (auto) 11.8 % (0.0-12.0); Neutrophils # (auto) 2.9 10 ^3/uL (1.6-8.6); Neutrophils % (auto) 50.9 % (37.0-80.0); Nucleated Red Blood Cells % 0.1 %; Red Blood Cells 3.91 10^6/uL (4.5-5.90); Red Cell Distribution Width 17.1 % (11.8-14.3); White Blood Cell 5.7 10^3/uL (4.4-10.8)
== END | disposition home or self-care (01) ==
LOC: LAB 10:34
PROVIDERS: ATTEND Internal Medicine
DX: C25.9 Malignant neoplasm of pancreas, unspecified (principal); R73.03 Prediabetes; D72.819 Decreased white blood cell count, unspecified
CPT/HCPCS: 36415; 82043; 83036; 85025

== ENCOUNTER → 2022-02-01 | Outpatient (CLI) | payer MEDICARE, OTHER | END | disposition home or self-care (01) | LOC: LAB 11:42 | PROVIDERS: ATTEND Internal Medicine | DX: C25.9 Malignant neoplasm of pancreas, unspecified (principal); D72.819 Decreased white blood cell count, unspecified; R73.03 Prediabetes | CPT/HCPCS: 82270 ==

== ENCOUNTER → 2022-04-28 | Outpatient (CLI) | payer MEDICARE, OTHER ==
[2022-04-28 08:56] LABS: Basophils # (auto) 0.1 10 ^3/uL (0-0.2); Basophils % (auto) 0.8 % (0.0-2.0); Eosinophils # (auto) 0.2 10 ^3/uL (0-0.8); Eosinophils % (auto) 2.7 % (0.0-7.0); Hematocrit 33.1 % (41.0-53.0); Hemoglobin 11.3 g/dL (13.5-17.5); Lymphocytes % (auto) 27.5 % (10.0-50.0); Mean Corpuscular Hemoglobin 27.8 pg (28.0-32.0); Mean Corpuscular Hgb Conc. 34.1 g/dL (32.0-36.0); Mean Corpuscular Volume 81.7 fL (80.0-100.0); Monocytes # (auto) 0.8 10 ^3/uL (0-1.3); Neutrophils # (auto) 4.2 10 ^3/uL (1.6-8.6); Nucleated Red Blood Cells % 0.2 %; Red Blood Cells 4.05 10^6/uL (4.5-5.90); Red Cell Distribution Width 16.6 % (11.8-14.3); White Blood Cell 7.3 10^3/uL (4.4-10.8)
[2022-04-28 09:38] LABS: Calcium 8.6 mg/dL (8.5-10.1); Potassium 3.4 mmol/L (3.5-5.1)
[2022-04-28 09:44] LABS: BUN/Creatinine Ratio 15.4 (10.0-20.0); Bilirubin, Total 0.4 mg/dL (0.2-1.0); Total Protein 6.9 g/dL (6.4-8.2)
== END | disposition home or self-care (01) ==
LOC: LAB 08:11
PROVIDERS: ATTEND Internal Medicine
DX: D72.819 Decreased white blood cell count, unspecified (principal); R73.03 Prediabetes
CPT/HCPCS: 36415; 80053; 85025

== ENCOUNTER → 2022-05-10 | Outpatient (CLI) | payer MEDICARE, OTHER ==
[2022-05-10 16:42] LABS: Calcium 8.3 mg/dL (8.5-10.1); Potassium 3.7 mmol/L (3.5-5.1); Uric Acid 5.7 mg/dL (3.5-7.2)
== END | disposition home or self-care (01) ==
LOC: LAB 15:37
PROVIDERS: ATTEND Internal Medicine
DX: C25.9 Malignant neoplasm of pancreas, unspecified (principal); C78.00 Secondary malignant neoplasm of unspecified lung; M10.9 Gout, unspecified
CPT/HCPCS: 36415; 80048; 84550

== ENCOUNTER → 2022-12-16 | Outpatient (CLI) | payer MEDICARE, OTHER ==
[~2022-12-16] MED LIST changes: -LISI20TA28 PO; +LISI20TA56 PO; -SIMV-13 PO; +SIMV40TA18 PO
[2022-12-16 14:43] LABS: Eosinophils # (auto) 0.2 10 ^3/uL (0-0.8); Lymphocytes # (auto) 0.9 10 ^3/uL (0.4-5.4); Monocytes # (auto) 0.6 10 ^3/uL (0-1.3); Neutrophils # (auto) 6.3 10 ^3/uL (1.6-8.6); Neutrophils % (auto) 78.2 % (37.0-80.0)
[2022-12-16 14:45] LABS: Basophils # (auto) 0.1 10 ^3/uL (0-0.2); Eosinophils % (auto) 2.6 % (0.0-7.0); Hemoglobin 10.3 g/dL (13.5-17.5); Lymphocytes % (auto) 10.9 % (10.0-50.0); Mean Corpuscular Hemoglobin 25.8 pg (28.0-32.0); Mean Corpuscular Hgb Conc. 31.4 g/dL (32.0-36.0); Mean Corpuscular Volume 82.2 fL (80.0-100.0); Monocytes % (auto) 7.3 % (0.0-12.0); Nucleated Red Blood Cells % 0.1 %; Red Blood Cells 4.01 10^6/uL (4.5-5.90); Red Cell Distribution Width 19.5 % (11.8-14.3)
[2022-12-16 15:03] LABS: Chloride 106 mmol/L (98-107); Potassium 3.9 mmol/L (3.5-5.1); Sodium 140 mmol/L (136-145)
[2022-12-16 15:04] LABS: Anion Gap 6 (5-15); Calcium 8.5 mg/dL (8.5-10.1); Carbon Dioxide 28 mmol/L (20-30)
[2022-12-16 15:09] LABS: Glucose 92 mg/dL (74-106)
[2022-12-16 15:10] LABS: BUN/Creatinine Ratio 19.3 (10.0-20.0); Blood Urea Nitrogen 22 mg/dL (9-23)
== END | disposition home or self-care (01) ==
LOC: LAB 14:27
PROVIDERS: ATTEND Internal Medicine
DX: C25.9 Malignant neoplasm of pancreas, unspecified (principal); I50.9 Heart failure, unspecified
CPT/HCPCS: 36415; 80048; 83880; 85025

== ENCOUNTER → 2022-12-22 | Outpatient (CLI) | payer MEDICARE, OTHER | END | disposition home or self-care (01) | LOC: XYW 08:22 | PROVIDERS: ATTEND Internal Medicine | DX: I08.8 Other rheumatic multiple valve diseases (principal); I50.9 Heart failure, unspecified; J90 Pleural effusion, not elsewhere classified | CPT/HCPCS: 93306 ==

== ENCOUNTER 2023-01-07 12:47 | Inpatient (IN) | payer MEDICARE, OTHER ==
[~2023-01-07] VITALS: Ht 167.6 cm; Wt 84.3 kg
[2023-01-07 13:19] LABS: Basophils # (auto) 0.1 10 ^3/uL (0-0.2); Basophils % (auto) 1.1 % (0.0-2.0); Eosinophils # (auto) 0.3 10 ^3/uL (0-0.8); Hemoglobin 10.1 g/dL (13.5-17.5); Lymphocytes # (auto) 1.1 10 ^3/uL (0.4-5.4); Neutrophils # (auto) 5.6 10 ^3/uL (1.6-8.6); Red Cell Distribution Width 20.3 % (11.8-14.3)
[2023-01-07 13:20] LABS: Eosinophils % (auto) 4.5 % (0.0-7.0); Hematocrit 32.1 % (41.0-53.0); Lymphocytes % (auto) 15.2 % (10.0-50.0); Mean Corpuscular Hemoglobin 25.3 pg (28.0-32.0); Mean Corpuscular Hgb Conc. 31.6 g/dL (32.0-36.0); Monocytes # (auto) 0.3 10 ^3/uL (0-1.3); Monocytes % (auto) 3.4 % (0.0-12.0); Neutrophils % (auto) 75.8 % (37.0-80.0); Red Blood Cells 4.01 10^6/uL (4.5-5.90); White Blood Cell 7.4 10^3/uL (4.4-10.8)
[2023-01-07 13:34] LABS: Partial Thromboplastin Time 27.9 SEC (24.5-34.5); Prothrombin Time 10.5 sec (9.3-11.8)
[2023-01-07 13:36] LABS: Alanine Aminotransferase 23 U/L (7-40); Albumin 3.6 g/dL (3.2-4.8); Alkaline Phosphatase 104 U/L (46-116); Anion Gap 5 (5-15); Aspartate Aminotransferase 19 U/L (13-40); BUN/Creatinine Ratio 22.4 (10.0-20.0); Bilirubin, Total 0.5 mg/dL (0.2-1.0); Blood Urea Nitrogen 22 mg/dL (9-23); Calcium 8.4 mg/dL (8.7-10.4); Carbon Dioxide 29 mmol/L (20-30); Chloride 105 mmol/L (98-107); Glucose 93 mg/dL (74-106); Magnesium 1.9 mg/dL (1.6-2.6); Potassium 3.9 mmol/L (3.5-5.1); Sodium 139 mmol/L (136-145)
[2023-01-07] MEDS ORDERED: ACETAMINOPHEN 325 MG TAB PO ONE (14:00)
[2023-01-07] MEDS ORDERED: IOHEXOL 350 MG/ML 100ML IJ ONE (14:07)
[2023-01-07 14:48] VITALS: PULSE 72; RESP 20; O2SAT 96
[2023-01-07] MEDS ORDERED: FUROSEMIDE 40 MG/4 ML VIAL IV ONE (16:15)
[2023-01-07] MEDS ORDERED: ALBUTEROL MEDNEB 2.5 mg/3ml NEB NEB PRN (17:15)
[2023-01-07] MEDS ORDERED: ACETAMINOPHEN 325 MG TAB PO PRN (17:15)
[2023-01-07 17:20] VITALS: BP 126/51; PULSE 65; RESP 20; O2SAT 96
[2023-01-07 17:56] LABS: Urine WBC None Seen /hpf (0 - 3)
[2023-01-07 18:02] VITALS: O2SAT 95
[2023-01-07 18:08] LABS: Urine Bacteria NONE SEEN /hpf (None Seen); Urine Blood Negative /uL (Negative); Urine Clarity Clear (Clear); Urine Color Colorless (Yellow); Urine Protein, UAD Negative (Negative); Urine Specific Gravity 1.018 (1.001-1.035); Urine Urobilinogen Normal (Negative); Urine pH 6.5 (5.0-8.0)
[2023-01-07 18:40] VITALS: BP 102/62; PULSE 62; RESP 16; TEMP 97.7; O2SAT 97
[2023-01-07 20:00] VITALS: BP 107/53; PULSE 64; RESP 15; TEMP 98.3; O2SAT 98
[2023-01-07 22:00] VITALS: BP 107/53; PULSE 64; RESP 15; TEMP 98.3; O2SAT 98
[2023-01-07] MEDS: ATORVASTATIN 20 MG TAB PO SCH (22:29)
[2023-01-08] VITALS (10 sets, daily range): BP systolic 103–126; BP diastolic 44–80; PULSE 58–98; RESP 15–20; TEMP 97.8–98.2; O2SAT 90–99
[2023-01-08] MEDS: MELATONIN 5 MG TAB PO SCH ×2 (00:46→21:16)
[2023-01-08] MEDS ORDERED: GABA-1250 PO (05:41)
[2023-01-08 06:58] LABS: Basophils # (auto) 0.1 10 ^3/uL (0-0.2); Basophils % (auto) 1.3 % (0.0-2.0); Eosinophils # (auto) 0.5 10 ^3/uL (0-0.8); Lymphocytes # (auto) 0.8 10 ^3/uL (0.4-5.4); Mean Corpuscular Volume 81.1 fL (80.0-100.0); Nucleated Red Blood Cells % 0.1 %
[2023-01-08 07:01] LABS: Eosinophils % (auto) 7.9 % (0.0-7.0); Hematocrit 30.5 % (41.0-53.0); Hemoglobin 9.7 g/dL (13.5-17.5); Mean Corpuscular Hemoglobin 25.8 pg (28.0-32.0); Mean Corpuscular Hgb Conc. 31.8 g/dL (32.0-36.0); Monocytes # (auto) 0.2 10 ^3/uL (0-1.3); Monocytes % (auto) 2.6 % (0.0-12.0); Neutrophils # (auto) 4.4 10 ^3/uL (1.6-8.6); Neutrophils % (auto) 75.2 % (37.0-80.0); Red Blood Cells 3.77 10^6/uL (4.5-5.90); White Blood Cell 5.9 10^3/uL (4.4-10.8)
[2023-01-08 07:12] LABS: Red Cell Distribution Width 20.2 % (11.8-14.3)
[2023-01-08 07:51] LABS: Alanine Aminotransferase 20 U/L (7-40); Alkaline Phosphatase 92 U/L (46-116); Anion Gap 6 (5-15); Blood Urea Nitrogen 15 mg/dL (9-23); Calcium 8.7 mg/dL (8.5-10.1); Carbon Dioxide 28 mmol/L (20-30); Chloride 104 mmol/L (98-107); Glucose 102 mg/dL (74-106); Potassium 3.6 mmol/L (3.5-5.1); Sodium 138 mmol/L (136-145)
[2023-01-08 07:52] LABS: Albumin 3.5 g/dL (3.2-4.8); Aspartate Aminotransferase 21 U/L (13-40)
[2023-01-08 07:53] LABS: Bilirubin, Total 0.6 mg/dL (0.2-1.0); Total Protein 5.9 g/dL (5.7-8.2)
[2023-01-08] MEDS: FUROSEMIDE 20 MG/2 ML VIAL IV SCH (10:00)
[2023-01-08] MEDS: [UNRECOGNIZED DRUG - OTHER] PO SCH (10:00)
[2023-01-08] MEDS: ASPirin-EC 81 mg tab PO SCH (10:25)
[2023-01-08] MEDS: ALLOPURINOL 100 MG TAB PO SCH (10:26)
[2023-01-08] MEDS: LEVOTHYROXINE SODIUM 25 MCG TAB PO SCH (10:26)
[2023-01-08] MEDS: hydroCHLOROthiazide 25 MG TAB PO SCH (10:26)
[2023-01-08] MEDS: ENOXAPARIN SOD 40 MG/0.4 ML SYRINGE SC SCH (10:27)
[2023-01-08] MEDS: LISINOPRIL 20 MG TAB PO SCH (10:27)
[2023-01-08] MEDS ORDERED: cefTRIAXone 1GM/50ML D5W 50 ML IV ONE (13:45)
[2023-01-08] MEDS ORDERED: AZITHROMYCIN 500MG/ 250ML 250 ML IV ONE (13:45)
[2023-01-08] MEDS ORDERED: ONDANSETRON HCL 4 MG/2 ML VIAL IV PRN (18:00)
[2023-01-08] MEDS: ALBUTEROL MEDNEB 2.5 mg/3ml NEB NEB SCH (18:16)
[2023-01-08] MEDS: ATORVASTATIN 20 MG TAB PO SCH (21:16)
[2023-01-08] MEDS ORDERED: MELATONIN 5 MG TAB PO SCH (22:00)
[2023-01-09] VITALS (18 sets, daily range): BP systolic 104–164; BP diastolic 47–110; PULSE 57–95; RESP 14–20; TEMP 97.3–98.8; O2SAT 91–100
[2023-01-09] MEDS: ALBUTEROL MEDNEB 2.5 mg/3ml NEB NEB SCH ×5 (00:15→23:18)
[2023-01-09] MEDS: AZITHROMYCIN 500MG/ 250ML 250 ML IV SCH (09:57)
[2023-01-09] MEDS: cefTRIAXone 1GM/50ML D5W 50 ML IV SCH (09:57)
[2023-01-09] MEDS: ENOXAPARIN SOD 40 MG/0.4 ML SYRINGE SC SCH (09:57)
[2023-01-09] MEDS: hydroCHLOROthiazide 25 MG TAB PO SCH (09:58)
[2023-01-09] MEDS: ALLOPURINOL 100 MG TAB PO SCH (09:58)
[2023-01-09] MEDS: LISINOPRIL 20 MG TAB PO SCH (09:58)
[2023-01-09] MEDS: LEVOTHYROXINE SODIUM 25 MCG TAB PO SCH (09:58)
[2023-01-09] MEDS: ASPirin-EC 81 mg tab PO SCH (09:58)
[2023-01-09] MEDS: FUROSEMIDE 20 MG/2 ML VIAL IV SCH (09:59)
[2023-01-09] MEDS: [UNRECOGNIZED DRUG - OTHER] PO SCH (09:59)
[2023-01-09 12:31] LABS: Body Fluid pH 8
[2023-01-09 14:55] LABS: Body Fluid Polymorphonuclear 17 % (0-25)
[2023-01-09 16:58] LABS: Body Fluid Red Blood Cells 1000 CUMM (0-2000); Body Fluid White Blood Cells 118 CUMM (0-200)
[2023-01-09] MEDS: ATORVASTATIN 20 MG TAB PO SCH (21:19)
[2023-01-09] MEDS: MELATONIN 5 MG TAB PO SCH (21:19)
[2023-01-09 23:59] LABS: Rapid Influenza A Negative (Negative); Rapid Influenza B Negative (Negative)
[2023-01-10] VITALS (15 sets, daily range): BP systolic 91–112; BP diastolic 47–58; PULSE 56–95; RESP 16–20; TEMP 97.9–98.7; O2SAT 92–100
[2023-01-10] LABS: COVID19 ANTIGEN SOFIA FIA NEGATIVE (NEGATIVE)
[2023-01-10] MEDS: ALBUTEROL MEDNEB 2.5 mg/3ml NEB NEB SCH ×3 (07:37→18:56)
[2023-01-10] MEDS: cefTRIAXone 1GM/50ML D5W 50 ML IV SCH (09:25)
[2023-01-10] MEDS: ASPirin-EC 81 mg tab PO SCH (09:26)
[2023-01-10] MEDS: AZITHROMYCIN 500MG/ 250ML 250 ML IV SCH (09:26)
[2023-01-10] MEDS: hydroCHLOROthiazide 25 MG TAB PO SCH (09:26)
[2023-01-10] MEDS: LISINOPRIL 20 MG TAB PO SCH (09:27)
[2023-01-10] MEDS: FUROSEMIDE 20 MG/2 ML VIAL IV SCH (09:27)
[2023-01-10] MEDS: LEVOTHYROXINE SODIUM 25 MCG TAB PO SCH (09:27)
[2023-01-10] MEDS: ENOXAPARIN SOD 40 MG/0.4 ML SYRINGE SC SCH (09:27)
[2023-01-10] MEDS: ALLOPURINOL 100 MG TAB PO SCH (09:27)
[2023-01-10] MEDS: [UNRECOGNIZED DRUG - OTHER] PO SCH (09:28)
[2023-01-10] MEDS: MELATONIN 5 MG TAB PO SCH (21:15)
[2023-01-10] MEDS: ATORVASTATIN 20 MG TAB PO SCH (21:15)
[2023-01-11] VITALS (8 sets, daily range): BP systolic 94–104; BP diastolic 46–64; PULSE 63–68; RESP 16–18; TEMP 98; O2SAT 95–99
[2023-01-11] MEDS: ALBUTEROL MEDNEB 2.5 mg/3ml NEB NEB SCH ×2 (01:35→07:40)
[2023-01-11] MEDS: ALLOPURINOL 100 MG TAB PO SCH (09:56)
[2023-01-11] MEDS: ASPirin-EC 81 mg tab PO SCH (09:56)
[2023-01-11] MEDS: ENOXAPARIN SOD 40 MG/0.4 ML SYRINGE SC SCH (09:56)
[2023-01-11] MEDS: cefTRIAXone 1GM/50ML D5W 50 ML IV SCH (09:56)
[2023-01-11] MEDS: LEVOTHYROXINE SODIUM 25 MCG TAB PO SCH (09:56)
[2023-01-11] MEDS: FUROSEMIDE 20 MG/2 ML VIAL IV SCH (09:57)
[2023-01-11] MEDS: hydroCHLOROthiazide 25 MG TAB PO SCH (09:57)
[2023-01-11] MEDS: [UNRECOGNIZED DRUG - OTHER] PO SCH (09:57)
[2023-01-11] MEDS: LISINOPRIL 20 MG TAB PO SCH (09:57)
[2023-01-11] MEDS: AZITHROMYCIN 500MG/ 250ML 250 ML IV SCH (11:00)
[2023-01-11] MEDS ORDERED: HYDR-4902 PO (11:49)
[2023-01-11] MEDS ORDERED: AZIT500T66 PO (11:49)
[2023-01-11] MEDS ORDERED: ALBUTEROL SULF 2.5 MG/0.5ML(0.5%) NEB SOLN ONE (12:25)
[2023-01-12 05:00] VITALS: BP 110/46; PULSE 64; RESP 16; TEMP 98.4; O2SAT 91
== END 2023-01-11 13:10 | disposition home or self-care (01) | DRG 177 ==
LOC: ER 12:47 → OVERFLOW 17:07 → WEST WING 18:28
PROVIDERS: ADMIT Nurse Practitioner Family; ATTEND Family Medicine
PROC: 0W993ZZ Drainage of Right Pleural Cavity, Percutaneous Approach (ICD-10-PCS; principal; 2023-01-09)
PROC: 0W9B3ZZ Drainage of Left Pleural Cavity, Percutaneous Approach (ICD-10-PCS; 2023-01-11)
DX: J15.69 Pneumonia due to other Gram-negative bacteria (principal); J96.01 Acute respiratory failure with hypoxia; J91.8 Pleural effusion in other conditions classified elsewhere; E78.00 Pure hypercholesterolemia, unspecified; Z20.822 Contact with and (suspected) exposure to COVID-19; M10.9 Gout, unspecified; I11.0 Hypertensive heart disease with heart failure; I50.9 Heart failure, unspecified; Z85.07 Personal history of malignant neoplasm of pancreas; Z85.118 Personal history of other malignant neoplasm of bronchus and lung; Z88.5 Allergy status to narcotic agent; J15.9 Unspecified bacterial pneumonia
CPT/HCPCS: 36415; 71045; 71046; 71275; 76604; 76942; 80053; 81001; 83605; 83735; 83880; 83986; 84484; 85025; 85379; 85610; 85730; 87040; 87081; 87205; 87426; 87804; 89051; 93005; 94640; G0378; J0696; J2405

== ENCOUNTER → 2023-01-26 | Outpatient (CLI) | payer MEDICARE, OTHER ==
[~2023-01-26] MED LIST changes: +AZIT500T66 PO; +GABA-1250 PO; +HYDR-4902 PO
[2023-01-26 11:10] LABS: INR 0.98 (0.9-1.15); Partial Thromboplastin Time 28.9 SEC (24.5-34.5); Prothrombin Time 10.3 sec (9.3-11.8)
== END | disposition home or self-care (01) ==
LOC: LAB 10:17
PROVIDERS: ATTEND Internal Medicine
DX: C78.89 Secondary malignant neoplasm of other digestive organs (principal); J90 Pleural effusion, not elsewhere classified; I50.9 Heart failure, unspecified
CPT/HCPCS: 36415; 85610; 85730

== ENCOUNTER → 2023-01-26 | Outpatient (CLI) | payer MEDICARE, OTHER ==
[2023-01-26 21:21] LABS: Body Fluid Polymorphonuclear 6 % (0-25); Body Fluid Red Blood Cells 428 CUMM (0-2000); Body Fluid White Blood Cells 103 CUMM (0-200)
[2023-01-27 11:06] LABS: Protein, Body Fluid 3.8 g/dL (.)
[2023-01-27 17:31] LABS: Body Fluid Red Blood Cells 4798 CUMM (0-2000); Body Fluid White Blood Cells 988 CUMM (0-200)
[2023-01-27 17:32] LABS: Body Fluid Polymorphonuclear 59 % (0-25)
[2023-01-28 11:08] LABS: Protein, Body Fluid 4.1 g/dL (.)
== END | disposition home or self-care (01) ==
LOC: US 10:51
PROVIDERS: ATTEND Internal Medicine
DX: J90 Pleural effusion, not elsewhere classified (principal)
CPT/HCPCS: 32555; 36415; 71045; 76604; 76942; 83986; 85610; 85730; 87070; 87205; 89051; C1729

== ENCOUNTER → 2023-01-27 | Outpatient (CLI) | payer MEDICARE, OTHER | END | disposition home or self-care (01) | LOC: US 12-28 11:00 | PROVIDERS: ATTEND Internal Medicine | DX: J90 Pleural effusion, not elsewhere classified (principal); I10 Essential (primary) hypertension; E78.5 Hyperlipidemia, unspecified; Z82.49 Family history of ischemic heart disease and other diseases of the circulatory system; Z83.3 Family history of diabetes mellitus; Z88.5 Allergy status to narcotic agent; Z79.899 Other long term (current) drug therapy | CPT/HCPCS: 49083; 71045; 88104; 88305; 88342; C1729; 76942 ==

== ENCOUNTER → 2023-03-01 | Outpatient (CLI) | payer MEDICARE, OTHER ==
[2023-03-01 10:39] LABS: Calcium 9.5 mg/dL (8.5-10.1); Chloride 102 mmol/L (98-107); Potassium 3.8 mmol/L (3.5-5.1); Sodium 139 mmol/L (136-145)
[2023-03-01 10:40] LABS: Anion Gap 3 (5-15); Carbon Dioxide 34 mmol/L (20-30)
[2023-03-01 10:45] LABS: BUN/Creatinine Ratio 13.8 (10.0-20.0); Blood Urea Nitrogen 15 mg/dL (9-23); Glucose 102 mg/dL (74-106)
== END | disposition home or self-care (01) ==
LOC: LAB 09:20
PROVIDERS: ATTEND Internal Medicine
DX: E78.89 Other lipoprotein metabolism disorders (principal); D64.9 Anemia, unspecified
CPT/HCPCS: 36415; 80048; 84443

== ENCOUNTER → 2023-03-03 | Outpatient (CLI) | payer MEDICARE, OTHER ==
[2023-03-03 17:53] LABS: Body Fluid pH 8
[2023-03-03 18:47] LABS: Body Fluid Polymorphonuclear 8 % (0-25); Body Fluid Red Blood Cells 13 CUMM (0-2000); Body Fluid White Blood Cells 205 CUMM (0-200)
[2023-03-07 14:06] LABS: Protein, Body Fluid 4.1 g/dL (.)
== END | disposition home or self-care (01) ==
LOC: XYW 11:08
PROVIDERS: ATTEND Internal Medicine
DX: J90 Pleural effusion, not elsewhere classified (principal); I10 Essential (primary) hypertension; E78.5 Hyperlipidemia, unspecified; Z88.5 Allergy status to narcotic agent; Z82.49 Family history of ischemic heart disease and other diseases of the circulatory system; Z83.3 Family history of diabetes mellitus; Z87.891 Personal history of nicotine dependence; Z79.890 Hormone replacement therapy; Z79.899 Other long term (current) drug therapy; Z79.82 Long term (current) use of aspirin; Z98.890 Other specified postprocedural states
CPT/HCPCS: 32555; 71045; 76604; 83986; 87205; 89051; C1729; 76942

== ENCOUNTER → 2023-03-03 | Outpatient (CLI) | payer MEDICARE, OTHER ==
[2023-03-03 11:05] LABS: Hemoglobin 10.8 g/dL (13.5-17.5)
[2023-03-03 11:07] LABS: Hematocrit 34.4 % (41.0-53.0); Mean Corpuscular Hemoglobin 24.8 pg (28.0-32.0); Mean Corpuscular Hgb Conc. 31.3 g/dL (32.0-36.0); Mean Corpuscular Volume 79.3 fL (80.0-100.0); Red Blood Cells 4.34 10^6/uL (4.5-5.90); Red Cell Distribution Width 19.8 % (11.8-14.3); White Blood Cell 4.4 10^3/uL (4.4-10.8)
[2023-03-03 11:19] LABS: INR 1.01 (0.9-1.15); Partial Thromboplastin Time 27.6 SEC (24.5-34.5); Prothrombin Time 10.6 sec (9.3-11.8)
[2023-03-03 11:20] LABS: Band Neutrophils % (manual) 0; Basophils % (manual) 0 (0.0-2.0); Blast Cells 0; Myelocytes % 0; Promyelocytes % 0; Reactive Lymphocytes 0
[2023-03-03 11:53] LABS: Chloride 99 mmol/L (98-107); Potassium 3.6 mmol/L (3.5-5.1); Sodium 137 mmol/L (136-145)
[2023-03-03 11:54] LABS: Anion Gap 5 (5-15); Calcium 9.5 mg/dL (8.5-10.1); Carbon Dioxide 33 mmol/L (20-30)
[2023-03-03 11:59] LABS: BUN/Creatinine Ratio 12.7 (10.0-20.0); Blood Urea Nitrogen 14 mg/dL (9-23); Glucose 99 mg/dL (74-106)
[2023-03-03 12:42] LABS: Eosinophils % (manual) 1 (0-7); Hypochromia Slight; Lymphocytes % (manual) 15 (10.0-50.0); Metamyelocytes % 1; Monocytes % (manual) 12 (0-12); Platelet Estimate Adequate
== END | disposition home or self-care (01) ==
LOC: LAB 10:45
PROVIDERS: ATTEND Internal Medicine
DX: C25.9 Malignant neoplasm of pancreas, unspecified (principal); J90 Pleural effusion, not elsewhere classified; I50.9 Heart failure, unspecified
CPT/HCPCS: 36415; 80048; 85007; 85027; 85610; 85730

== ENCOUNTER 2023-03-06 11:09 | Outpatient (CLI) | payer MEDICARE, OTHER | END 2023-03-06 18:00 | disposition home or self-care (01) | LOC: XYW 11:09 | PROVIDERS: ATTEND Internal Medicine | DX: J90 Pleural effusion, not elsewhere classified (principal); I12.9 Hypertensive chronic kidney disease with stage 1 through stage 4 chronic kidney disease, or unspecified chronic kidney disease; N18.32 Chronic kidney disease, stage 3b; D64.9 Anemia, unspecified; Z88.6 Allergy status to analgesic agent; Z85.07 Personal history of malignant neoplasm of pancreas; Z79.899 Other long term (current) drug therapy; Z98.890 Other specified postprocedural states | CPT/HCPCS: 32555; C1729 ==

== ENCOUNTER 2023-03-12 04:34 | Inpatient (IN) | payer MEDICARE, OTHER ==
[~2023-03-12] VITALS: Ht 167.6 cm; Wt 78.3 kg
[2023-03-12 05:30] VITALS: PULSE 82; RESP 20; O2SAT 94
[2023-03-12 05:57] LABS: Albumin 3.6 g/dL (3.2-4.8); Alkaline Phosphatase 101 U/L (46-116); Anion Gap 5 (5-15); Aspartate Aminotransferase 14 U/L (13-40); BUN/Creatinine Ratio 13.4 (10.0-20.0); Bilirubin, Total 0.5 mg/dL (0.2-1.0); Blood Urea Nitrogen 16 mg/dL (9-23); Carbon Dioxide 32 mmol/L (20-30); Chloride 98 mmol/L (98-107); Glucose 99 mg/dL (74-106); Potassium 4.1 mmol/L (3.5-5.1); Sodium 135 mmol/L (136-145)
[2023-03-12 05:58] LABS: Total Protein 6.5 g/dL (5.7-8.2)
[2023-03-12 06:00] LABS: Alanine Aminotransferase < 9 U/L (7-40)
[2023-03-12 06:17] LABS: Basophils # (auto) 0.1 10 ^3/uL (0-0.2); Hemoglobin 10.7 g/dL (13.5-17.5); Lymphocytes # (auto) 1.2 10 ^3/uL (0.4-5.4); Mean Corpuscular Hemoglobin 25.2 pg (28.0-32.0); Monocytes # (auto) 1.2 10 ^3/uL (0-1.3); Nucleated Red Blood Cells % 0.1 %; Red Blood Cells 4.23 10^6/uL (4.5-5.90)
[2023-03-12 06:21] LABS: Basophils % (auto) 1.4 % (0.0-2.0); Eosinophils # (auto) 0.2 10 ^3/uL (0-0.8); Eosinophils % (auto) 3.4 % (0.0-7.0); Hematocrit 33.8 % (41.0-53.0); Lymphocytes % (auto) 16.9 % (10.0-50.0); Mean Corpuscular Hgb Conc. 31.5 g/dL (32.0-36.0); Mean Corpuscular Volume 79.9 fL (80.0-100.0); Monocytes % (auto) 17.5 % (0.0-12.0); Neutrophils # (auto) 4.2 10 ^3/uL (1.6-8.6); Neutrophils % (auto) 60.8 % (37.0-80.0); White Blood Cell 6.9 10^3/uL (4.4-10.8)
[2023-03-12 06:41] LABS: Red Cell Distribution Width 20.8 % (11.8-14.3)
[2023-03-12 08:00] VITALS: PULSE 73; RESP 32; O2SAT 95
[2023-03-12 08:34] LABS: Hypochromia Slight
[2023-03-12 08:35] LABS: Anisocytosis Slight; Platelet Estimate Adequate
[2023-03-12 09:09] LABS: Urine Bacteria NONE SEEN /hpf (None Seen); Urine Blood Negative /uL (Negative); Urine Clarity Clear (Clear); Urine Color Yellow (Yellow); Urine Protein, UAD Negative (Negative); Urine Specific Gravity 1.013 (1.001-1.035); Urine Urobilinogen Normal (Negative); Urine WBC 1 /hpf (0 - 3)
[2023-03-12] MEDS ORDERED: DOCUSATE SOD 100 MG CAP PO PRN (10:15)
[2023-03-12] MEDS ORDERED: TEMA15CA2 PO (10:30)
[2023-03-12] MEDS ORDERED: POTA-211 PO (10:30)
[2023-03-12] MEDS ORDERED: PANT40T PO (10:30)
[2023-03-12] MEDS ORDERED: SUCR1TAB PO (10:30)
[2023-03-12] MEDS ORDERED: SPIR25TA8 PO (10:30)
[2023-03-12] MEDS ORDERED: HYDR25TA5 PO (10:30)
[2023-03-12] MEDS ORDERED: FUR20T PO (10:30)
[2023-03-12] MEDS: LEVOTHYROXINE SODIUM 25 MCG TAB PO SCH (11:59)
[2023-03-12] MEDS: ENOXAPARIN SOD 80 MG/0.8ML SYRINGE SC ONE (11:59)
[2023-03-12] MEDS: IOHEXOL 350 MG/ML 100ML IJ ONE (12:41)
[2023-03-12] MEDS: GABAPENTIN 300 MG CAP PO SCH (14:11)
[2023-03-12] MEDS: ONDANSETRON HCL 4 MG/2 ML VIAL IV PRN (15:07)
[2023-03-12 15:44] VITALS: BP 107/52; PULSE 67; RESP 23; TEMP 97.6; O2SAT 91
[2023-03-12 19:30] VITALS: PULSE 69; RESP 21; O2SAT 95
[2023-03-12 19:40] VITALS: PULSE 64; RESP 20; O2SAT 94
[2023-03-12] MEDS: ALBUTEROL SULF 2.5 MG/0.5ML(0.5%) NEB SOLN NEB PRN (19:45)
[2023-03-12] MEDS: IPRATROPIUM BROM 0.5 MG/2.5ML INH SOL NEB PRN (19:45)
[2023-03-12] MEDS ORDERED: ENOXAPARIN SOD 80 MG/0.8ML SYRINGE SC SCH (22:00)
[2023-03-12] MEDS: ATORVASTATIN 20 MG TAB PO SCH (22:00)
[2023-03-12] MEDS: POTASSIUM CHL 10 Meq TABLET PO SCH (22:17)
[2023-03-12] MEDS: PANTOPRAZOLE 40 MG TAB PO SCH (22:17)
[2023-03-12 23:44] VITALS: BP 102/56; PULSE 66; RESP 18; TEMP 98.4; O2SAT 97
[2023-03-12] MEDS: SUCRALFATE 1 GM TAB PO SCH (23:51)
[2023-03-13] VITALS (12 sets, daily range): BP systolic 91–119; BP diastolic 50–59; PULSE 63–98; RESP 12–19; TEMP 97.8–98.2; O2SAT 92–100
[2023-03-13 06:34] LABS: Basophils # (auto) 0.1 10 ^3/uL (0-0.2); Eosinophils # (auto) 0.2 10 ^3/uL (0-0.8); Lymphocytes # (auto) 0.8 10 ^3/uL (0.4-5.4); Mean Corpuscular Hemoglobin 25.1 pg (28.0-32.0); Neutrophils # (auto) 4.1 10 ^3/uL (1.6-8.6)
[2023-03-13 06:37] LABS: Basophils % (auto) 1.4 % (0.0-2.0); Eosinophils % (auto) 3.7 % (0.0-7.0); Hemoglobin 10.4 g/dL (13.5-17.5); Lymphocytes % (auto) 13.4 % (10.0-50.0); Mean Corpuscular Hgb Conc. 31.6 g/dL (32.0-36.0); Mean Corpuscular Volume 79.5 fL (80.0-100.0); Monocytes % (auto) 15.8 % (0.0-12.0); Neutrophils % (auto) 65.7 % (37.0-80.0); Red Blood Cells 4.15 10^6/uL (4.5-5.90); White Blood Cell 6.2 10^3/uL (4.4-10.8)
[2023-03-13 06:41] LABS: Alkaline Phosphatase 98 U/L (46-116); Anion Gap 4 (5-15); BUN/Creatinine Ratio 13.6 (10.0-20.0); Blood Urea Nitrogen 16 mg/dL (9-23); Calcium 8.9 mg/dL (8.5-10.1); Carbon Dioxide 32 mmol/L (20-30); Chloride 98 mmol/L (98-107); Glucose 103 mg/dL (74-106); Potassium 4.3 mmol/L (3.5-5.1); Sodium 134 mmol/L (136-145)
[2023-03-13 06:42] LABS: Albumin 3.3 g/dL (3.2-4.8); Aspartate Aminotransferase 16 U/L (13-40); Bilirubin, Total 0.5 mg/dL (0.2-1.0); Total Protein 5.9 g/dL (5.7-8.2)
[2023-03-13 06:47] LABS: Alanine Aminotransferase < 9 U/L (7-40)
[2023-03-13 07:23] LABS: Red Cell Distribution Width 20.9 % (11.8-14.3)
[2023-03-13] MEDS: FUROSEMIDE 20 MG TAB PO SCH (09:23)
[2023-03-13] MEDS: hydroCHLOROthiazide 25 MG TAB PO SCH (09:24)
[2023-03-13] MEDS: ALLOPURINOL 300 MG TAB PO SCH (09:24)
[2023-03-13] MEDS: SPIRONOLACTONE 25 MG TAB PO SCH (09:24)
[2023-03-13] MEDS: LISINOPRIL 20 MG TAB PO SCH (09:25)
[2023-03-13 11:02] LABS: INR 1.03 (0.9-1.15); Partial Thromboplastin Time 28.5 SEC (24.5-34.5); Prothrombin Time 10.8 sec (9.3-11.8)
[2023-03-13] MEDS: methylPREDNISolone SOD SUCC 40 MG/ML VL IV SCH (11:30)
[2023-03-13] MEDS ORDERED: ALBUTEROL SULF 2.5 MG/0.5ML(0.5%) NEB SOLN NEB PRN (11:30)
[2023-03-13] MEDS ORDERED: LACTULOSE 20Gm/30ML SOLN PO PRN (11:30)
[2023-03-13] MEDS: cefTRIAXone 1GM/50ML D5W 50 ML IV ONE (12:14)
[2023-03-13] MEDS: methylPREDNISolone SOD SUCC 125 MG/2 ML VL IV ONE (12:16)
[2023-03-13] MEDS: AZITHROMYCIN 500MG/ 250ML 250 ML IV ONE (12:21)
[2023-03-13] MEDS: ALBUTEROL SULF 2.5 MG/0.5ML(0.5%) NEB SOLN NEB SCH (12:51)
[2023-03-13] MEDS: IPRATROPIUM BROM 0.5 MG/2.5ML INH SOL NEB SCH (12:52)
[2023-03-13 18:12] LABS: Body Fluid Polymorphonuclear 30 % (0-25); Body Fluid Red Blood Cells 55 CUMM (0-2000); Body Fluid White Blood Cells 440 CUMM (0-200)
[2023-03-13] MEDS: TEMAZEPAM 15 MG CAP PO PRN (21:32)
[2023-03-13] MEDS: ATORVASTATIN 20 MG TAB PO SCH (21:32)
[2023-03-14] VITALS (19 sets, daily range): BP systolic 90–123; BP diastolic 49–67; PULSE 72–88; RESP 16–25; TEMP 97.6–97.9; O2SAT 92–100
[2023-03-14 06:17] LABS: Hemoglobin 10.5 g/dL (13.5-17.5); White Blood Cell 7.3 10^3/uL (4.4-10.8)
[2023-03-14 06:21] LABS: Hematocrit 32.8 % (41.0-53.0); Mean Corpuscular Hemoglobin 25.1 pg (28.0-32.0); Mean Corpuscular Hgb Conc. 31.9 g/dL (32.0-36.0); Mean Corpuscular Volume 78.5 fL (80.0-100.0); Red Blood Cells 4.18 10^6/uL (4.5-5.90)
[2023-03-14 06:34] LABS: Albumin 3.5 g/dL (3.2-4.8); Alkaline Phosphatase 95 U/L (46-116); Anion Gap 6 (5-15); Aspartate Aminotransferase 14 U/L (13-40); BUN/Creatinine Ratio 17.2 (10.0-20.0); Bilirubin, Total 0.4 mg/dL (0.2-1.0); Blood Urea Nitrogen 22 mg/dL (9-23); Calcium 8.9 mg/dL (8.5-10.1); Carbon Dioxide 28 mmol/L (20-30); Chloride 95 mmol/L (98-107); Glucose 155 mg/dL (74-106); Potassium 4.4 mmol/L (3.5-5.1)
[2023-03-14 06:35] LABS: Sodium 129 mmol/L (136-145); Total Protein 6.1 g/dL (5.7-8.2)
[2023-03-14 06:36] LABS: Red Cell Distribution Width 20.3 % (11.8-14.3)
[2023-03-14 06:37] LABS: Alanine Aminotransferase < 9 U/L (7-40); Basophils % (manual) 0 (0.0-2.0); Blast Cells 0; Eosinophils % (manual) 0 (0-7); Myelocytes % 0; Promyelocytes % 0; Reactive Lymphocytes 0
[2023-03-14 07:29] LABS: Band Neutrophils % (manual) 1; Lymphocytes % (manual) 5 (10.0-50.0); Metamyelocytes % 1; Monocytes % (manual) 4 (0-12)
[2023-03-14 07:30] LABS: Platelet Estimate Adequate
[2023-03-14] MEDS: cefTRIAXone 1GM/50ML D5W 50 ML IV SCH (09:02)
[2023-03-14] MEDS: AZITHROMYCIN 500MG/ 250ML 250 ML IV SCH (09:12)
[2023-03-14] MEDS: LIDOCAINE 2%HCL (LOCAL ANESTH.) INJ 20ML MDV ONE (12:42)
[2023-03-14] MEDS: fentaNYL CITRATE 100 MCG/2 ML VL ONE (12:55)
[2023-03-14] MEDS: MIDAZOLAM HCL 2MG/2ML 2ml VIAL (1mg/ml) ONE (12:55)
[2023-03-14 13:07] LABS: Protein, Body Fluid 3.3 g/dL (.)
[2023-03-14] MEDS: ceFAZolin 1GM/50ML 50 ML IV ONE (13:25)
[2023-03-14] MEDS: ACETAMINOPHEN 325 MG TAB PO PRN (17:18)
[2023-03-15] VITALS (15 sets, daily range): BP systolic 104–107; BP diastolic 54–59; PULSE 63–82; RESP 14–20; TEMP 97.6–98.3; O2SAT 94–98
[2023-03-15] MEDS: metroNIDAZOLE 500 MG TAB PO SCH (15:08)
[2023-03-15 16:00] LABS: Partial Thromboplastin Time 25.2 SEC (24.5-34.5); Prothrombin Time 10.5 sec (9.3-11.8)
[2023-03-16] VITALS (12 sets, daily range): BP systolic 102–126; BP diastolic 48–61; PULSE 63–78; RESP 16–19; TEMP 97.7–98.4; O2SAT 92–98
[2023-03-16] MEDS: LEVOTHYROXINE SODIUM 50 MCG TAB PO SCH (06:03)
[2023-03-16 06:47] LABS: Basophils # (auto) 0 10 ^3/uL (0-0.2); Eosinophils # (auto) 0 10 ^3/uL (0-0.8); Neutrophils % (auto) 94.4 % (37.0-80.0)
[2023-03-16 06:49] LABS: Hematocrit 33.6 % (41.0-53.0); Hemoglobin 10.7 g/dL (13.5-17.5); Lymphocytes # (auto) 0.2 10 ^3/uL (0.4-5.4); Lymphocytes % (auto) 1.4 % (10.0-50.0); Mean Corpuscular Hemoglobin 25.4 pg (28.0-32.0); Mean Corpuscular Hgb Conc. 31.9 g/dL (32.0-36.0); Mean Corpuscular Volume 79.9 fL (80.0-100.0); Monocytes # (auto) 0.7 10 ^3/uL (0-1.3); Monocytes % (auto) 4.2 % (0.0-12.0); Neutrophils # (auto) 16.2 10 ^3/uL (1.6-8.6); Red Blood Cells 4.21 10^6/uL (4.5-5.90); Red Cell Distribution Width 20.2 % (11.8-14.3); White Blood Cell 17.1 10^3/uL (4.4-10.8)
[2023-03-16 07:03] LABS: Alanine Aminotransferase < 9 U/L (7-40); Albumin 3.3 g/dL (3.2-4.8); Alkaline Phosphatase 79 U/L (46-116); Anion Gap 5 (5-15); Aspartate Aminotransferase 14 U/L (13-40); BUN/Creatinine Ratio 20.6 (10.0-20.0); Bilirubin, Total 0.3 mg/dL (0.2-1.0); Blood Urea Nitrogen 26 mg/dL (9-23); Calcium 8.6 mg/dL (8.7-10.4); Carbon Dioxide 27 mmol/L (20-30); Chloride 94 mmol/L (98-107); Glucose 124 mg/dL (74-106); Sodium 126 mmol/L (136-145); Total Protein 5.9 g/dL (5.7-8.2)
[2023-03-16 07:07] LABS: Potassium 5.7 mmol/L (3.5-5.1)
[2023-03-16] MEDS: FUROSEMIDE 20 MG/2 ML VIAL IV ONE (10:30)
[2023-03-16] MEDS: SODIUM BICARB 8.4% 50Meq/50ml SYR INJ IV ONE (10:30)
[2023-03-16] MEDS: InsuLIN REG 1unit/0.01ml Soln (100units/ml) IV ONE (10:30)
[2023-03-16] MEDS: ERTAPENEM SOD INJ 1 GM in SODIUM CHL 0.9% 50 ML IV SCH (12:00)
[2023-03-16] MEDS: DEXTROSE (50%) 50ML SYRG IV ONE (12:47)
[2023-03-16] MEDS: LINEZOLID 600MG/300ML 300 ML IV SCH (15:26)
[2023-03-16 16:02] LABS: Alanine Aminotransferase 16 U/L (7-40); Albumin 3.6 g/dL (3.2-4.8); Alkaline Phosphatase 93 U/L (46-116); Anion Gap 2 (5-15); Aspartate Aminotransferase 20 U/L (13-40); Blood Urea Nitrogen 34 mg/dL (9-23); Calcium 9.3 mg/dL (8.5-10.1); Carbon Dioxide 34 mmol/L (20-30); Chloride 96 mmol/L (98-107); Glucose 84 mg/dL (74-106); Potassium 5.1 mmol/L (3.5-5.1)
[2023-03-16 16:03] LABS: Bilirubin, Total 0.3 mg/dL (0.2-1.0); Total Protein 6.1 g/dL (5.7-8.2)
[2023-03-16 16:05] LABS: Sodium 132 mmol/L (136-145)
[2023-03-17] VITALS (11 sets, daily range): BP systolic 102–110; BP diastolic 45–54; PULSE 64–86; RESP 17–20; TEMP 97.7–98.2; O2SAT 92–97
[2023-03-17 00:39] LABS: Urine Bacteria NONE SEEN /hpf (None Seen); Urine Blood Negative /uL (Negative); Urine Clarity Clear (Clear); Urine Color Yellow (Yellow); Urine Hyaline Cast MANY /lpf (0 - 2); Urine Mucus FEW (None Seen); Urine Protein, UAD Negative (Negative); Urine Specific Gravity 1.014 (1.001-1.035); Urine Urobilinogen Normal (Negative); Urine WBC 1 /hpf (0 - 3)
[2023-03-17 06:59] LABS: Basophils # (auto) 0 10 ^3/uL (0-0.2); Eosinophils # (auto) 0 10 ^3/uL (0-0.8); Lymphocytes # (auto) 0.3 10 ^3/uL (0.4-5.4); Mean Corpuscular Volume 80.2 fL (80.0-100.0)
[2023-03-17 07:01] LABS: Hemoglobin 11.7 g/dL (13.5-17.5); Lymphocytes % (auto) 2.8 % (10.0-50.0); Mean Corpuscular Hemoglobin 25.4 pg (28.0-32.0); Mean Corpuscular Hgb Conc. 31.6 g/dL (32.0-36.0); Monocytes # (auto) 0.5 10 ^3/uL (0-1.3); Neutrophils # (auto) 11.1 10 ^3/uL (1.6-8.6); Neutrophils % (auto) 93.2 % (37.0-80.0); Red Blood Cells 4.62 10^6/uL (4.5-5.90); Red Cell Distribution Width 20.7 % (11.8-14.3); White Blood Cell 11.9 10^3/uL (4.4-10.8)
[2023-03-17 07:16] LABS: Alanine Aminotransferase 11 U/L (7-40); Albumin 3.6 g/dL (3.2-4.8); Alkaline Phosphatase 87 U/L (46-116); Anion Gap 3 (5-15); Aspartate Aminotransferase 16 U/L (13-40); BUN/Creatinine Ratio 23.1 (10.0-20.0); Blood Urea Nitrogen 36 mg/dL (9-23); Calcium 9.1 mg/dL (8.5-10.1); Carbon Dioxide 31 mmol/L (20-30); Chloride 93 mmol/L (98-107); Glucose 128 mg/dL (74-106); Potassium 5.3 mmol/L (3.5-5.1)
[2023-03-17 07:17] LABS: Bilirubin, Total 0.4 mg/dL (0.2-1.0); Total Protein 6.2 g/dL (5.7-8.2)
[2023-03-17 07:18] LABS: Sodium 127 mmol/L (136-145)
[2023-03-17] MEDS: methylPREDNISolone SOD SUCC 40 MG/ML VL IV SCH (10:00)
[2023-03-17] MEDS ORDERED: METR-344 PO ×2 (12:16)
[2023-03-17] MEDS ORDERED: LEVO500T91 PO ×2 (12:16)
[2023-03-17] MEDS ORDERED: ALBU108A5 IN ×2 (12:17)
== END 2023-03-17 15:35 | disposition home or self-care (01) | DRG 180 ==
LOC: ER 04:34 → OVERFLOW 10:27 → WEST WING 23:00 → TELE-WESTW 03-16 22:02
PROVIDERS: ADMIT Nurse Practitioner Family; ATTEND Internal Medicine
PROC: 0W993ZZ Drainage of Right Pleural Cavity, Percutaneous Approach (ICD-10-PCS; 2023-03-13)
PROC: 0W9B30Z Drainage of Left Pleural Cavity with Drainage Device, Percutaneous Approach (ICD-10-PCS; 2023-03-14)
PROC: 0W9B3ZZ Drainage of Left Pleural Cavity, Percutaneous Approach (ICD-10-PCS; principal; 2023-03-16)
DX: C78.00 Secondary malignant neoplasm of unspecified lung (principal); J18.9 Pneumonia, unspecified organism; J96.21 Acute and chronic respiratory failure with hypoxia; J93.9 Pneumothorax, unspecified; J91.0 Malignant pleural effusion; I10 Essential (primary) hypertension; E78.5 Hyperlipidemia, unspecified; R79.89 Other specified abnormal findings of blood chemistry; E87.5 Hyperkalemia; G62.9 Polyneuropathy, unspecified; D72.829 Elevated white blood cell count, unspecified; Z85.07 Personal history of malignant neoplasm of pancreas; Z88.5 Allergy status to narcotic agent; Z90.411 Acquired partial absence of pancreas; Z82.49 Family history of ischemic heart disease and other diseases of the circulatory system; Z83.3 Family history of diabetes mellitus
CPT/HCPCS: 36415; 71045; 71275; 76604; 76937; 76942; 80053; 81001; 82962; 83880; 83986; 84484; 85007; 85025; 85027; 85379; 85610; 85730; 86850; 86900; 86901; 87070; 87081; 87205; 89051; 93005; 94640; 96372; 99152; G0378; J1335; J1815; J2250; J2405

== ENCOUNTER 2023-03-18 20:43 | Inpatient (IN) | payer MEDICARE, OTHER ==
[~2023-03-18] VITALS: Ht 167.6 cm; Wt 75.5 kg
[~2023-03-18 20:43] MED LIST changes: +ALBU108A5 IN; -ASPI1TAB20 PO; -AZIT500T66 PO; +FUR20T PO; -HYDR-4902 PO; +LEVO500T91 PO; +METR-344 PO; -OMEP-434 PO; -ONDA-144 PO; +PANT40T PO; +POTA-211 PO; +SPIR25TA8 PO; +SUCR1TAB PO; +TEMA15CA2 PO; -TURM1TAB PO
[2023-03-18 21:16] VITALS: O2SAT 96
[2023-03-18 21:20] VITALS: PULSE 77; RESP 14; O2SAT 96
[2023-03-18 21:33] LABS: Basophils # (auto) 0 10 ^3/uL (0-0.2); Basophils % (auto) 0.2 % (0.0-2.0); Eosinophils # (auto) 0.3 10 ^3/uL (0-0.8); Eosinophils % (auto) 2.4 % (0.0-7.0); Hematocrit 32.4 % (41.0-53.0); Hemoglobin 10.3 g/dL (13.5-17.5); Lymphocytes % (auto) 8.9 % (10.0-50.0); Mean Corpuscular Hemoglobin 25.2 pg (28.0-32.0); Mean Corpuscular Hgb Conc. 31.8 g/dL (32.0-36.0); Mean Corpuscular Volume 79.2 fL (80.0-100.0); Monocytes # (auto) 1.9 10 ^3/uL (0-1.3); Monocytes % (auto) 17.4 % (0.0-12.0); Neutrophils # (auto) 7.6 10 ^3/uL (1.6-8.6); Neutrophils % (auto) 71.1 % (37.0-80.0); Red Blood Cells 4.09 10^6/uL (4.5-5.90); White Blood Cell 10.6 10^3/uL (4.4-10.8)
[2023-03-18 21:34] LABS: Red Cell Distribution Width 20.3 % (11.8-14.3)
[2023-03-18] MEDS: SODIUM CHLORIDE 0.9% 1,000 ML IV ONE (21:36)
[2023-03-18 21:46] LABS: Chloride 97 mmol/L (98-107); Potassium 3.9 mmol/L (3.5-5.1); Sodium 128 mmol/L (136-145)
[2023-03-18 21:47] LABS: Anion Gap 1 (5-15); Calcium 7.9 mg/dL (8.5-10.1); Carbon Dioxide 30 mmol/L (20-30)
[2023-03-18 21:52] LABS: BUN/Creatinine Ratio 24.3 (10.0-20.0); Blood Urea Nitrogen 43 mg/dL (9-23); Glucose 116 mg/dL (74-106)
[2023-03-18] MEDS ORDERED: DOCUSATE SOD 100 MG CAP PO PRN (22:30)
[2023-03-18 22:43] LABS: Urine Bacteria NONE SEEN /hpf (None Seen); Urine Blood Negative /uL (Negative); Urine Clarity Clear (Clear); Urine Color Colorless (Yellow); Urine Hyaline Cast FEW /lpf (0 - 2); Urine Protein, UAD Negative (Negative); Urine Specific Gravity 1.009 (1.001-1.035); Urine Urobilinogen Normal (Negative); Urine WBC <1 /hpf (0 - 3); Urine pH 6.5 (5.0-8.0)
[2023-03-18] MEDS: CALCIUM GLUC 1,000mg/50ml-NS 50 ML IV ONE (23:07)
[2023-03-18] MEDS: SODIUM CHLORIDE 0.9% 1,000 ML IV SCH (23:09)
[2023-03-18 23:42] VITALS: BP 95/47; PULSE 85; RESP 14; TEMP 98.4; O2SAT 96
[2023-03-19] VITALS (7 sets, daily range): BP systolic 97–106; BP diastolic 53–58; PULSE 65–73; RESP 16–22; TEMP 97.6–98; O2SAT 95–100
[2023-03-19] MEDS: ASPirin-EC 325mg tab PO ONE (00:59)
[2023-03-19] MEDS: ACETAMINOPHEN 325 MG TAB PO PRN (01:00)
[2023-03-19] MEDS: SODIUM CHLORIDE 0.9% 1,000 ML IV ONE (02:42)
[2023-03-19] MEDS: MELATONIN 5 MG TAB PO ONE (04:52)
[2023-03-19 05:15] LABS: White Blood Cell 9.5 10^3/uL (4.4-10.8)
[2023-03-19 05:16] LABS: Hematocrit 30.9 % (41.0-53.0); Hemoglobin 9.7 g/dL (13.5-17.5); Mean Corpuscular Hemoglobin 24.7 pg (28.0-32.0); Mean Corpuscular Hgb Conc. 31.5 g/dL (32.0-36.0); Mean Corpuscular Volume 78.5 fL (80.0-100.0); Red Blood Cells 3.94 10^6/uL (4.5-5.90)
[2023-03-19 05:19] LABS: Alkaline Phosphatase 57 U/L (46-116); Anion Gap 2 (5-15); BUN/Creatinine Ratio 25.9 (10.0-20.0); Blood Urea Nitrogen 36 mg/dL (9-23); Calcium 7.3 mg/dL (8.7-10.4); Carbon Dioxide 27 mmol/L (20-30); Chloride 102 mmol/L (98-107); Glucose 90 mg/dL (74-106); Sodium 131 mmol/L (136-145)
[2023-03-19 05:20] LABS: Albumin 2.5 g/dL (3.2-4.8); Aspartate Aminotransferase 13 U/L (13-40); Bilirubin, Total 0.4 mg/dL (0.2-1.0); Total Protein 4.4 g/dL (5.7-8.2)
[2023-03-19 05:39] LABS: Red Cell Distribution Width 20.1 % (11.8-14.3)
[2023-03-19 05:40] LABS: Band Neutrophils % (manual) 0; Basophils % (manual) 0 (0.0-2.0); Blast Cells 0; Metamyelocytes % 0; Promyelocytes % 0; Reactive Lymphocytes 0
[2023-03-19 06:07] LABS: Alanine Aminotransferase < 9 U/L (7-40)
[2023-03-19 06:50] LABS: Eosinophils % (manual) 2 (0-7); Lymphocytes % (manual) 10 (10.0-50.0); Monocytes % (manual) 14 (0-12); Myelocytes % 1; Platelet Estimate Adequate
[2023-03-19] MEDS: LEVOTHYROXINE SODIUM 25 MCG TAB PO SCH (07:18)
[2023-03-19 08:31] LABS: Magnesium 1.9 mg/dL (1.6-2.6)
[2023-03-19] MEDS: FAMOTIDINE (10MG/ML) 2ML VL IV SCH (11:26)
[2023-03-19] MEDS: MULTIPLE VITAMIN TAB PO SCH (11:27)
[2023-03-19] MEDS: HEPARIN SODIUM (PORCINE) 5000 UNITS/ML 1ML VIAL SC SCH (11:27)
[2023-03-19] MEDS ORDERED: SODIUM CHLORIDE 0.9% 1,000 ML IV SCH (13:30)
[2023-03-19] MEDS: levoFLOXacin 500MG 100 ML IV ONE (14:37)
[2023-03-19] MEDS: ONDANSETRON HCL 4 MG/2 ML VIAL IV PRN (19:13)
[2023-03-19] MEDS: TEMAZEPAM 15 MG CAP PO PRN (21:10)
[2023-03-19] MEDS: ENOXAPARIN SOD 80 MG/0.8ML SYRINGE SC SCH (21:10)
[2023-03-19] MEDS: SODIUM CHLORIDE 0.9% 1,000 ML IV SCH (21:13)
[2023-03-19] MEDS: GABAPENTIN 300 MG CAP PO ONE (22:45)
[2023-03-20] VITALS (12 sets, daily range): BP systolic 99–114; BP diastolic 49–60; PULSE 68–90; RESP 16–20; TEMP 97.9–98.6; O2SAT 93–97
[2023-03-20] MEDS: NITROGLYCERIN 0.4 MG SL TAB SL PRN (02:43)
[2023-03-20] MEDS: GABAPENTIN 300 MG CAP PO SCH (05:30)
[2023-03-20 06:15] LABS: Basophils # (auto) 0 10 ^3/uL (0-0.2); Eosinophils # (auto) 0.2 10 ^3/uL (0-0.8); Hemoglobin 10.4 g/dL (13.5-17.5); Neutrophils # (auto) 6.1 10 ^3/uL (1.6-8.6)
[2023-03-20 06:28] LABS: INR 1.09 (0.9-1.15); Prothrombin Time 11.4 sec (9.3-11.8)
[2023-03-20 06:32] LABS: Alanine Aminotransferase 11 U/L (7-40); Albumin 2.8 g/dL (3.2-4.8); Alkaline Phosphatase 64 U/L (46-116); Anion Gap 4 (5-15); Aspartate Aminotransferase 39 U/L (13-40); BUN/Creatinine Ratio 20.6 (10.0-20.0); Bilirubin, Total 0.4 mg/dL (0.2-1.0); Blood Urea Nitrogen 22 mg/dL (9-23); Calcium 7.7 mg/dL (8.7-10.4); Carbon Dioxide 26 mmol/L (20-30); Chloride 106 mmol/L (98-107); Glucose 91 mg/dL (74-106); Potassium 4.4 mmol/L (3.5-5.1); Total Protein 4.9 g/dL (5.7-8.2); Uric Acid 6.7 mg/dL (3.7-9.2)
[2023-03-20 06:42] LABS: Sodium 136 mmol/L (136-145)
[2023-03-20 07:11] LABS: Basophils % (auto) 0.2 % (0.0-2.0); Eosinophils % (auto) 2.5 % (0.0-7.0); Hematocrit 32.5 % (41.0-53.0); Lymphocytes # (auto) 0.8 10 ^3/uL (0.4-5.4); Lymphocytes % (auto) 9.3 % (10.0-50.0); Mean Corpuscular Hemoglobin 25.5 pg (28.0-32.0); Mean Corpuscular Volume 79.8 fL (80.0-100.0); Monocytes # (auto) 1.2 10 ^3/uL (0-1.3); Monocytes % (auto) 14.8 % (0.0-12.0); Neutrophils % (auto) 73.2 % (37.0-80.0); Red Blood Cells 4.08 10^6/uL (4.5-5.90); White Blood Cell 8.4 10^3/uL (4.4-10.8)
[2023-03-20 07:31] LABS: Urine WBC None Seen /hpf (0 - 3)
[2023-03-20 08:00] LABS: Urine Bacteria NONE SEEN /hpf (None Seen); Urine Blood Negative /uL (Negative); Urine Clarity Clear (Clear); Urine Protein, UAD Negative (Negative); Urine Specific Gravity 1.014 (1.001-1.035); Urine Urobilinogen Normal (Negative)
[2023-03-20 08:16] LABS: Protein, Urine 13.5 mg/dL (0.0-11.9)
[2023-03-20 08:17] LABS: Urine Color Straw (Yellow)
[2023-03-20 08:19] LABS: Creatinine, Urine 61.8 mg/dL (30.0-125.0)
[2023-03-20] MEDS: levoFLOXacin 500MG 100 ML IV SCH (10:42)
[2023-03-20] MEDS ORDERED: ALBU108A5 INH (14:36)
[2023-03-20] MEDS ORDERED: LEVO50TA7 PO (14:38)
[2023-03-20] MEDS ORDERED: ALLO100T PO (14:38)
[2023-03-20] MEDS: SODIUM CHLORIDE 0.9 % NEB SOLN 3ML NEB ONE (14:46)
[2023-03-20] MEDS: ALBUTEROL SULF 2.5 MG/0.5ML(0.5%) NEB SOLN NEB PRN (14:54)
[2023-03-20] MEDS: SODIUM CHLORIDE 0.9% 1,000 ML IV SCH (16:00)
[2023-03-21] VITALS (30 sets, daily range): BP systolic 87–142; BP diastolic 36–96; PULSE 72–118; RESP 16–36; TEMP 97.1–98.5; O2SAT 85–100
[2023-03-21 05:20] LABS: Mean Corpuscular Hemoglobin 25.2 pg (28.0-32.0)
[2023-03-21 05:22] LABS: Hematocrit 31.6 % (41.0-53.0); Hemoglobin 9.9 g/dL (13.5-17.5); Mean Corpuscular Hgb Conc. 31.3 g/dL (32.0-36.0); Mean Corpuscular Volume 80.3 fL (80.0-100.0); Red Blood Cells 3.94 10^6/uL (4.5-5.90); White Blood Cell 11.7 10^3/uL (4.4-10.8)
[2023-03-21 05:34] LABS: Anion Gap 3 (5-15); Carbon Dioxide 26 mmol/L (20-30); Chloride 105 mmol/L (98-107); Potassium 4.3 mmol/L (3.5-5.1); Sodium 134 mmol/L (136-145)
[2023-03-21 05:35] LABS: Calcium 8.2 mg/dL (8.5-10.1)
[2023-03-21 05:38] LABS: Band Neutrophils % (manual) 0; Basophils % (manual) 0 (0.0-2.0); Blast Cells 0; Eosinophils % (manual) 0 (0-7); Metamyelocytes % 0; Myelocytes % 0; Promyelocytes % 0; Reactive Lymphocytes 0
[2023-03-21 05:40] LABS: Blood Urea Nitrogen 14 mg/dL (9-23); Glucose 102 mg/dL (74-106)
[2023-03-21 12:27] LABS: Lymphocytes % (manual) 7 (10.0-50.0); Monocytes % (manual) 18 (0-12); Platelet Estimate Adequate
[2023-03-21] MEDS: ATROPINE SULF 1 MG/10ml SYR ONE (12:57)
[2023-03-21] MEDS: ANGIOMAX 250 MG VIAL IV ONE ×2 (12:59→13:51)
[2023-03-21] MEDS: SODIUM CHL 0.9% 50 ML ONE ×2 (12:59→13:51)
[2023-03-21] MEDS: IODIXANOL 320MG/ML 100ML BTL IV ONE ×2 (13:25→13:46)
[2023-03-21] MEDS: CLOPIDOGREL 300 MG TAB ONE (13:56)
[2023-03-21] MEDS: ASPirin 325 MG TAB ONE (13:56)
[2023-03-21] MEDS: ONDANSETRON HCL 4 MG/2 ML VIAL ONE (14:09)
[2023-03-21] MEDS: FUROSEMIDE 20 MG/2 ML VIAL ONE (14:22)
[2023-03-21] MEDS: FUROSEMIDE 40 MG/4 ML VIAL IV ONE (14:56)
[2023-03-21 15:35] LABS: Eosinophils # (auto) 0.1 10 ^3/uL (0-0.8); Hemoglobin 10.7 g/dL (13.5-17.5); Mean Corpuscular Hemoglobin 25.4 pg (28.0-32.0)
[2023-03-21 15:36] LABS: Basophils # (auto) 0.1 10 ^3/uL (0-0.2); Basophils % (auto) 0.4 % (0.0-2.0); Hematocrit 34.6 % (41.0-53.0); Mean Corpuscular Hgb Conc. 30.8 g/dL (32.0-36.0); Mean Corpuscular Volume 82.4 fL (80.0-100.0); Monocytes % (auto) 13.8 % (0.0-12.0); Neutrophils # (auto) 11.1 10 ^3/uL (1.6-8.6); Neutrophils % (auto) 77.8 % (37.0-80.0); Nucleated Red Blood Cells % 0.1 %; White Blood Cell 14.2 10^3/uL (4.4-10.8)
[2023-03-21 15:37] LABS: Red Cell Distribution Width 20.3 % (11.8-14.3)
[2023-03-21 15:45] LABS: Chloride 105 mmol/L (98-107); Potassium 4.4 mmol/L (3.5-5.1); Sodium 133 mmol/L (136-145)
[2023-03-21 15:46] LABS: Anion Gap 4 (5-15); Carbon Dioxide 24 mmol/L (20-30)
[2023-03-21 15:47] LABS: Calcium 7.7 mg/dL (8.7-10.4)
[2023-03-21 15:51] LABS: BUN/Creatinine Ratio 12.1 (10.0-20.0); Blood Urea Nitrogen 12 mg/dL (9-23); Glucose 123 mg/dL (74-106)
[2023-03-21] MEDS: FAMOTIDINE (10MG/ML) 2ML VL IV ONE (17:03)
[2023-03-21] MEDS: BUMETANIDE 2.5mg/10ml (0.25 mg/ml) INJ IV SCH (18:03)
[2023-03-21] MEDS: ALBUTEROL SULF 2.5 MG/0.5ML(0.5%) NEB SOLN NEB PRN (21:03)
[2023-03-22] VITALS (18 sets, daily range): BP systolic 74–123; BP diastolic 31–75; PULSE 73–110; RESP 16–35; TEMP 97.4–98.6; O2SAT 93–100
[2023-03-22 06:35] LABS: Hemoglobin 9.3 g/dL (13.5-17.5)
[2023-03-22 06:38] LABS: Hematocrit 29.4 % (41.0-53.0); Mean Corpuscular Hemoglobin 25.1 pg (28.0-32.0); Mean Corpuscular Hgb Conc. 31.7 g/dL (32.0-36.0); Mean Corpuscular Volume 79.3 fL (80.0-100.0); Red Blood Cells 3.71 10^6/uL (4.5-5.90)
[2023-03-22 06:44] LABS: Anion Gap 5 (5-15); Calcium 8.4 mg/dL (8.5-10.1); Carbon Dioxide 27 mmol/L (20-30); Chloride 104 mmol/L (98-107); Potassium 4.4 mmol/L (3.5-5.1); Sodium 136 mmol/L (136-145)
[2023-03-22 06:50] LABS: BUN/Creatinine Ratio 14.3 (10.0-20.0); Blood Urea Nitrogen 18 mg/dL (9-23); Glucose 119 mg/dL (74-106)
[2023-03-22 06:52] LABS: Red Cell Distribution Width 20.1 % (11.8-14.3)
[2023-03-22 06:53] LABS: Band Neutrophils % (manual) 0; Basophils % (manual) 0 (0.0-2.0); Blast Cells 0; Eosinophils % (manual) 0 (0-7); Myelocytes % 0; Promyelocytes % 0; Reactive Lymphocytes 0
[2023-03-22] MEDS: CLOPIDOGREL BISULFATE 75 MG TAB PO SCH (10:11)
[2023-03-22] MEDS: ASPirin 81 mg TAB PO SCH (10:11)
[2023-03-22 11:12] LABS: Lymphocytes % (manual) 6 (10.0-50.0); Metamyelocytes % 1; Monocytes % (manual) 11 (0-12); Platelet Estimate Adequate
[2023-03-22] MEDS ORDERED: VANCOMYCIN PER PHARMACY 0 MG IV SCH (16:30)
[2023-03-22] MEDS: ALPRAZolam 0.25 MG TAB PO PRN (16:44)
[2023-03-22] MEDS: VANCOMYCIN 1GM/200ML 200 ML IV ONE (18:55)
[2023-03-22 19:44] LABS: Base Excess -3.4 mmol/L (-2.0-2.0)
[2023-03-22] MEDS: LORazepam 2MG/ML-1ML VIAL IV ONE (20:45)
[2023-03-22] MEDS: CEFEPIME 2GM/50ML NS 50 ML IV SCH (21:06)
[2023-03-22 22:52] LABS: Base Excess -2.7 mmol/L (-2.0-2.0)
[2023-03-23] VITALS (75 sets, daily range): BP systolic 73–152; BP diastolic 18–102; PULSE 83–121; RESP 16–44; TEMP 97.7–98.9; O2SAT 80–100
[2023-03-23] MEDS: PHENYLEPHRINE IV 250 ML IV SCH (00:05)
[2023-03-23 05:12] LABS: Chloride 102 mmol/L (98-107); Potassium 4.3 mmol/L (3.5-5.1); Sodium 135 mmol/L (136-145)
[2023-03-23 05:13] LABS: Anion Gap 7 (5-15); Carbon Dioxide 26 mmol/L (20-30); White Blood Cell 14.8 10^3/uL (4.4-10.8)
[2023-03-23 05:14] LABS: Calcium 8.3 mg/dL (8.5-10.1)
[2023-03-23 05:17] LABS: Hematocrit 26.4 % (41.0-53.0); Hemoglobin 8.5 g/dL (13.5-17.5); Mean Corpuscular Hemoglobin 25.9 pg (28.0-32.0); Mean Corpuscular Hgb Conc. 32.1 g/dL (32.0-36.0); Mean Corpuscular Volume 80.7 fL (80.0-100.0); Red Blood Cells 3.28 10^6/uL (4.5-5.90); Red Cell Distribution Width 20.3 % (11.8-14.3)
[2023-03-23 05:18] LABS: BUN/Creatinine Ratio 16.7 (10.0-20.0); Blood Urea Nitrogen 22 mg/dL (9-23); Glucose 104 mg/dL (74-106)
[2023-03-23 05:28] LABS: Band Neutrophils % (manual) 0; Basophils % (manual) 0 (0.0-2.0); Blast Cells 0; Eosinophils % (manual) 0 (0-7); Metamyelocytes % 0; Myelocytes % 0; Promyelocytes % 0; Reactive Lymphocytes 0
[2023-03-23 07:05] LABS: Base Excess -0.3 mmol/L (-2.0-2.0)
[2023-03-23 08:14] LABS: Anisocytosis Slight; Lymphocytes % (manual) 6 (10.0-50.0); Monocytes % (manual) 15 (0-12); Platelet Estimate Adequate
[2023-03-23] MEDS: VANCOMYCIN 1GM/200ML 200 ML IV SCH (10:00)
[2023-03-23] MEDS: FUROSEMIDE 40 MG/4 ML VIAL IV ONE (10:15)
[2023-03-23] MEDS: LORazepam 2MG/ML-1ML VIAL IV ONE (10:15)
[2023-03-23] MEDS: TAMSULOSIN HYDROCHLORIDE 0.4 MG CAP PO ONE (12:00)
[2023-03-23] MEDS: NOREPINEPHRINE BITARTRATE 32 MG in SODIUM CHL 0.9% 218 ML IV SCH (16:00)
[2023-03-23] MEDS: PHENYLEPHRINE INJ 80 MG in SODIUM CHL 0.9% 242 ML IV SCH (16:00)
[2023-03-23 16:38] LABS: Base Excess -4.4 mmol/L (-2.0-2.0)
[2023-03-23] MEDS ORDERED: FUROSEMIDE INJECTION 100 MG in SODIUM CHL 0.9% 100 ML IV SCH (18:00)
[2023-03-23 18:01] LABS: Hemoglobin 9.3 g/dL (13.5-17.5); Red Blood Cells 3.71 10^6/uL (4.5-5.90); White Blood Cell 12.8 10^3/uL (4.4-10.8)
[2023-03-23 18:02] LABS: Hematocrit 29.6 % (41.0-53.0); Mean Corpuscular Hemoglobin 25.2 pg (28.0-32.0); Mean Corpuscular Hgb Conc. 31.5 g/dL (32.0-36.0); Mean Corpuscular Volume 79.9 fL (80.0-100.0)
[2023-03-23 18:05] LABS: Red Cell Distribution Width 20.4 % (11.8-14.3)
[2023-03-23 18:06] LABS: Basophils % (manual) 0 (0.0-2.0); Blast Cells 0; Eosinophils % (manual) 0 (0-7); Metamyelocytes % 0; Myelocytes % 0; Promyelocytes % 0; Reactive Lymphocytes 0
[2023-03-23 18:13] LABS: Alanine Aminotransferase 16 U/L (7-40); Albumin 3.1 g/dL (3.2-4.8); Alkaline Phosphatase 73 U/L (46-116); Anion Gap 9 (5-15); Aspartate Aminotransferase 24 U/L (13-40); BUN/Creatinine Ratio 18.7 (10.0-20.0); Blood Urea Nitrogen 26 mg/dL (9-23); Calcium 8.5 mg/dL (8.5-10.1); Carbon Dioxide 25 mmol/L (20-30); Chloride 102 mmol/L (98-107); Glucose 137 mg/dL (74-106); Potassium 4.1 mmol/L (3.5-5.1); Sodium 136 mmol/L (136-145)
[2023-03-23 18:14] LABS: Bilirubin, Total 0.3 mg/dL (0.2-1.0); Total Protein 5.2 g/dL (5.7-8.2)
[2023-03-23] MEDS: VASOPRESSIN 20 UNITS in SODIUM CHL 0.9% 99 ML IV SCH (18:30)
[2023-03-23] MEDS: EPINEPHrine HCL 250 ML IV SCH (18:30)
[2023-03-23] MEDS: ALBUMIN 25% 100 ML IV SCH (19:38)
[2023-03-23 19:59] LABS: Anisocytosis Slight; Band Neutrophils % (manual) 4; Lymphocytes % (manual) 4 (10.0-50.0); Monocytes % (manual) 18 (0-12)
[2023-03-23 20:00] LABS: Platelet Estimate Adequate
[2023-03-23] MEDS: BUMETANIDE INJECTION 12.5 MG in GIVE UN-DILUTED 0 ML IV SCH (21:30)
[2023-03-23] MEDS: ATORVASTATIN 20 MG TAB PO SCH (22:00)
[2023-03-23] MEDS: LIDOCAINE 2% TOPICAL JELLY 5 ML URJT TOP ONE (22:17)
[2023-03-24] VITALS (72 sets, daily range): BP systolic 0–185; BP diastolic 0–97; PULSE 30–122; RESP 0–37; TEMP 98.1–98.6; O2SAT 89–100
[2023-03-24] MEDS ORDERED: PHENYLEPHRINE IV 250 ML IV ONE (05:22)
[2023-03-24] MEDS ORDERED: PHENYLEPHRINE HCL 10 MG/ML VL ONE ×2 (05:23→05:24)
[2023-03-24] MEDS ORDERED: LORazepam 2MG/ML-1ML VIAL IV PRN ×2 (06:15→11:30)
[2023-03-24 08:09] LABS: Alanine Aminotransferase 15 U/L (7-40); Albumin 3.4 g/dL (3.2-4.8); Alkaline Phosphatase 67 U/L (46-116); Anion Gap 10 (5-15); Aspartate Aminotransferase 20 U/L (13-40); BUN/Creatinine Ratio 17.8 (10.0-20.0); Bilirubin, Total 0.4 mg/dL (0.2-1.0); Blood Urea Nitrogen 24 mg/dL (9-23); Calcium 8.7 mg/dL (8.5-10.1); Carbon Dioxide 26 mmol/L (20-30); Chloride 101 mmol/L (98-107); Glucose 159 mg/dL (74-106); Potassium 3.5 mmol/L (3.5-5.1); Sodium 137 mmol/L (136-145); Total Protein 5.4 g/dL (5.7-8.2)
[2023-03-24 08:16] LABS: Base Excess 0.6 mmol/L (-2.0-2.0)
[2023-03-24 08:34] LABS: Basophils # (auto) 0.1 10 ^3/uL (0-0.2); Eosinophils # (auto) 0 10 ^3/uL (0-0.8); Lymphocytes # (auto) 0.7 10 ^3/uL (0.4-5.4); Red Blood Cells 3.39 10^6/uL (4.5-5.90)
[2023-03-24 08:35] LABS: Basophils % (auto) 0.5 % (0.0-2.0); Hematocrit 27.4 % (41.0-53.0); Hemoglobin 8.6 g/dL (13.5-17.5); Lymphocytes % (auto) 4.4 % (10.0-50.0); Mean Corpuscular Hemoglobin 25.4 pg (28.0-32.0); Mean Corpuscular Hgb Conc. 31.4 g/dL (32.0-36.0); Mean Corpuscular Volume 80.9 fL (80.0-100.0); Monocytes # (auto) 3.8 10 ^3/uL (0-1.3); Monocytes % (auto) 22.5 % (0.0-12.0); Neutrophils # (auto) 12.2 10 ^3/uL (1.6-8.6); Neutrophils % (auto) 72.6 % (37.0-80.0); Red Cell Distribution Width 20.6 % (11.8-14.3); White Blood Cell 16.7 10^3/uL (4.4-10.8)
[2023-03-24] MEDS: LINEZOLID 600MG/300ML 300 ML IV SCH (10:34)
[2023-03-24] MEDS ORDERED: ONDANSETRON HCL 4 MG/2 ML VIAL IV PRN (11:30)
[2023-03-24] MEDS: HYDROmorphone HCL 2 MG/ML VL/or syr IV PRN (11:54)
[2023-03-24] MEDS: TAMSULOSIN HYDROCHLORIDE 0.4 MG CAP PO SCH (17:42)
== END 2023-03-24 16:28 | DRG 853 ==
LOC: EDBD 20:43 → ER 20:43 → TELE 23:44 → TELE-WESTW 03-19 14:44 → DOU IN ICU 03-21 16:41 → ICU CENTRL 03-23 07:15
PROVIDERS: ADMIT Nurse Practitioner Family; ATTEND Internal Medicine
PROC: 027236Z Dilation of Coronary Artery, Three Arteries with Three Drug-eluting Intraluminal Devices, Percutaneous Approach (ICD-10-PCS; principal; 2023-03-21)
PROC: 02F03ZZ Fragmentation in Coronary Artery, One Artery, Percutaneous Approach (ICD-10-PCS; 2023-03-21)
PROC: B2111ZZ Fluoroscopy of Multiple Coronary Arteries using Low Osmolar Contrast (ICD-10-PCS; 2023-03-21)
PROC: B2151ZZ Fluoroscopy of Left Heart using Low Osmolar Contrast (ICD-10-PCS; 2023-03-21)
PROC: 4A023N7 Measurement of Cardiac Sampling and Pressure, Left Heart, Percutaneous Approach (ICD-10-PCS; 2023-03-21)
PROC: 4A033BC Measurement of Arterial Pressure, Coronary, Percutaneous Approach (ICD-10-PCS; 2023-03-21)
PROC: 5A09357 Assistance with Respiratory Ventilation, Less than 24 Consecutive Hours, Continuous Positive Airway Pressure (ICD-10-PCS; 2023-03-22)
PROC: 0W993ZZ Drainage of Right Pleural Cavity, Percutaneous Approach (ICD-10-PCS; 2023-03-23)
PROC: 5A09357 Assistance with Respiratory Ventilation, Less than 24 Consecutive Hours, Continuous Positive Airway Pressure (ICD-10-PCS; 2023-03-23)
PROC: 5A09357 Assistance with Respiratory Ventilation, Less than 24 Consecutive Hours, Continuous Positive Airway Pressure (ICD-10-PCS; 2023-03-24)
DX: A41.9 Sepsis, unspecified organism (principal); I21.4 Non-ST elevation (NSTEMI) myocardial infarction; J96.01 Acute respiratory failure with hypoxia; N17.0 Acute kidney failure with tubular necrosis; J15.69 Pneumonia due to other Gram-negative bacteria; J15.9 Unspecified bacterial pneumonia; C78.00 Secondary malignant neoplasm of unspecified lung; C25.9 Malignant neoplasm of pancreas, unspecified; E87.1 Hypo-osmolality and hyponatremia; I13.0 Hypertensive heart and chronic kidney disease with heart failure and stage 1 through stage 4 chronic kidney disease, or unspecified chronic kidney disease; I25.10 Atherosclerotic heart disease of native coronary artery without angina pectoris; I95.9 Hypotension, unspecified; E86.0 Dehydration; N18.32 Chronic kidney disease, stage 3b; D63.8 Anemia in other chronic diseases classified elsewhere; E78.5 Hyperlipidemia, unspecified; I50.9 Heart failure, unspecified; Z85.07 Personal history of malignant neoplasm of pancreas; Z90.411 Acquired partial absence of pancreas; Z88.5 Allergy status to narcotic agent; Z79.899 Other long term (current) drug therapy; Z82.49 Family history of ischemic heart disease and other diseases of the circulatory system; Z83.3 Family history of diabetes mellitus; Z51.5 Encounter for palliative care; Z92.21 Personal history of antineoplastic chemotherapy
CPT/HCPCS: 0523T; 92928; 93458; 99285; 36415; 36600; 71045; 76604; 76775; 76942; 80048; 80053; 80061; 80202; 81001; 82565; 82570; 82805; 82962; 83036; 83735; 83880; 84156; 84300; 84443; 84484; 84550; 85007; 85025; 85027; 85379; 85610; 86850; 86900; 86901; 87040; 87081; 87086; 93005; 93970; 94640; 94660; 99152; C1874; C1887; G0378; J0692; J1956; J2405; J3490; P9047; Q9967